=== PATIENT | female | born 1935 | race Caucasian/White ===

== ENCOUNTER 2019-06-21 00:49 | Inpatient (IN) | payer MEDICARE, OTHER, SELFPAY ==
[2019-06-21] VITALS (16 sets, daily range): BP systolic 82–133; BP diastolic 52–82; PULSE 77–108; RESP 14–95; TEMP 35.8–36.6; O2SAT 18–99; BMI 28.3
--- NOTE | 2019-06-21 | ECHO_ITS ---
Patient Info Name: Anastasia Jay Age: 84 years : 1935 Gender: Female Ht: 67 in Wt: 170 lbs BSA: 1.92 m2 HR: 94 bpm BP: 109 / 72 mmHg Technical Quality: Fair Exam Date: 06/21/2019 10:06 AM Exam Location: [facility] Patient Status: Inpatient Admit Date: 06/21/2019 Staff Ordering Physician: Yvan Lombardi MD Air Intercept Controller Supervisor: Amita Chawla RDCS Attending Provider: Malina Herr DO Referring Physician: Maria C AGUDELO; Exam Type: CA echo dop color flow w con Study Info Complete two-dimensional, color flow and Doppler transthoracic echocardiogram is performed with contrast to opacify the left ventrical and to improve the deliniation of the left ventrical endocarial boarders. Contrast/Agitated Saline Contrast/Ag. Saline: Definity Amount: 3.00 ml Summary 1. Borderline LV enlargement, mild LVH; variable LV contractility due to atrial fibrillation, moderate LV systolic dysfunction with segmental wall motion abnormality-severely hypokinetic to akinetic anteroseptal wall, apex and inferoseptum. LVEF about 40%; diastolic dysfunction is present. Mild biatrial enlargement. Mitral annular calcification, mild MR. Mild aortic valve calcification, mild stenosis, LUCIAN 1.9 cm2. Moderate tricuspid regurgitation, moderate pulmonary hypertension, RVSP 52 mmHg. Left Ventricle Left ventricular chamber dimension is normal. Left ventricular systolic function is moderately reduced, estimated at 35-40%. There is mildly increased left ventricular wall thickness. Left ventricular septal wall motion is normal. The left ventricular diastolic function is abnormal. Right Ventricle Right ventricular chamber dimension is mildly enlarged. Right ventricular systolic function is reduced. Left Atria Left atrial chamber dimension is mildly enlarged. Right Atria Right atrial chamber dimension is mildly enlarged. Aortic Valve There is mild aortic valve stenosis with a peak velocity of 87.85 cm/s, mean gradient of 2 mmHg, and aortic valve area of 2.85 cm2. There is no aortic valve regurgitation. There is mild aortic valve calcification. Pulmonic Valve The pulmonic valve is normal. There is trace pulmonic regurgitation. Mitral Valve The mitral valve has calcified annulus. There is no mitral valve stenosis. There is mild mitral valve regurgitation. Tricuspid Valve The tricuspid valve leaflets are normal. There is moderate tricuspid valve regurgitation. Moderate pulmonary hypertension, estimated pulmonary arterial systolic pressure is 52 mmHg. Pericardium/Pleural The pericardium appears epicardial fat pad. There is trivial pericardial effusion. Aorta The aortic root size at the sinus of Valsalva is normal. The prox ascending aorta size is normal. Left Ventricular Outflow Tract Name Value Normal LVOT 2D LVOT Diameter 2.29 cm LVOT Doppler LVOT Peak Gradient 0 mmHg LVOT Mean Gradient 0 mmHg LVOT VTI 8.95 cm LVOT VTI/AV VTI Ratio 0.69 LVOT Stroke Volum
--- NOTE | ~2019-06-21 | XR_ITS ---
XR chest port-a-cath/central DATE: 06/21/2019 03:42 INDICATION: Central line placement TECHNIQUE: Portable AP chest on 06/21/2019 at 0342 hours COMPARISON: None FINDINGS: Right internal jugular central venous catheter tip overlies the caudal aspect of the superi or vena cava. No evidence of pneumothorax. The right lung base and right costophrenic angle are excluded. Cardiomegaly. No pulmonary consolidation is evident. IMPRESSION: Right internal jugular central venous catheter in lower superior vena cava; no evidence o f pneumothorax Cardiomegaly Reviewed, dictated and finalized at [facility]. Reviewed, dictated and finalized at [facility]. IMPRESSION: Right internal jugular central venous catheter in lower superior ve na cava; no evidence of pneumothorax Cardiomegaly
--- NOTE | ~2019-06-21 | XR_ITS ---
XR ERCP DATE: 06/22/2019 08:13 INDICATION: Choledocholithiasis TECHNIQUE: 2 spot C-arm images of the right upper quadrant 120.5 seconds fluoroscopy time [id number] [id number] COMPARISON: 06/21/2019 CT abdomen pelvis FINDINGS: An endoscope is noted overlying the stomach and duodenum. At least 2 filling defects of the distal common bile duct are suggested. There is common bile duct dilatation. The pancreatic duct is opacified and appears unremarkable. IMPRESSION: Choledocholithiasis Reviewed, dictated and finalized at [facility]. Reviewed, dictated and finalized at [facility]. IMPRESSION: Choledocholithiasis
--- NOTE | ~2019-06-21 | CT_ITS ---
EXAMINATION: CT abdomen pelvis w con DATE: 06/21/2019 02:40 INDICATION: Generalized abdominal pain TECHNIQUE: Computed tomography (CT) of the abdomen and pelvis was performed with 100 cc Omnipaque 350 intravenous contrast. Automated exposure control and iterative reconstruction technique were employe d. Exam dose: 800.77 mGy-cm total exam DLP. COMPARISON: None. FINDINGS: There is mild atelectasis and/or scarring in the lower lung zones. Cardiomegaly. No pericar dial or pleural effusion. Possible 9 mm hyperdense stone in the distal common bile duct. No intrahepatic bile duct dilatation i s evident however. Recommend correlation with serum bilirubin and possible MRCP or ERCP as clinically appropriate. No hepatic or pancreatic splenic space-occupying mass lesion is evident. Approximately 2 cm right renal probable cyst. Suggestion of an approximately 1 cm left renal cyst. Ad ditional cysts or renal masses are not excluded on this limited noncontrast examination. No urinary tract calculus or hydroureteronephrosis. There is prominent abdominal aortic and proximal bilateral renal artery calcification as well as calc ifications at the origins of the celiac and particularly superior mesenteric and inferior mesenteric arteries. There are iliac and femoral artery calcifications. No abdominal aortic aneurysm. No intrape ritoneal or retroperitoneal or pelvic mass lesion or adenopathy or ascites. Normal appendix. There are numerous diverticula of the sigmoid and descending colon; no CT evidence of diverticulitis. The urinary bladder is unremarkable. Status post hysterectomy. 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 No suspicious osteolytic or osteoblastic lesions. IMPRESSION: Probable distal common bile duct stone; recommend correlation with serum bilirubin. Cons ider MRCP or ERCP as clinically appropriate Probable renal cysts; limited noncontrast examination Atherosclerosis Diverticulosis of the left colon; no CT evidence of diverticulitis Normal appendix Reviewed, dictated and finalized at [facility]. Reviewed, dictated and finalized at [facility]. IMPRESSION: Probable distal common bile duct stone; recommend correlation with serum bilirubin. Consider MRCP or ERCP as clinically appropriate Probable renal cysts; limited noncontrast examination Atherosclerosis Diverticulosis of the left colon; no CT evidence of diverticulitis Normal appendix
--- NOTE | 2019-06-21 00:55 | ED.ABDPAIN ---
HPI - Abdominal Pain General Chief Complaint: Abdominal Pain Stated Complaint: abd pain Time Seen by Provider: 06/21/19 00:49 Source: patient and RN notes reviewed Mode of arrival: EMS Limitations: no limitations History of Present Illness HPI narrative: Pt is an 84 y/o female who presents to the ED, via EMS from home, with c/o lower abdominal pain that began a week ago. Pt states that she has had a bowel obstruction for the past week. Pt also reports nausea, dry heaving, poor appetite, and mild constipation, but denies a fever and vomiting. MD elicited complaint: abdominal pain Onset (ago): week(s) (1) Pain Consistency: other (still present) Location: other (lower abdomen) Associated symptoms: nausea, constipation (mild) and other (dry heaving, poor appetite) Review of Systems Review of Systems: Narrative: CONSTITUTIONAL: Reports poor appetite. Denies fever. GASTROINTESTINAL: Reports lower abdominal pain, nausea, dry heaving, and mild constipation. Denies vomiting. All systems reviewed & are unremarkable except as noted in HPI and below PMFSH Past Medical History Medical History (Updated 06/21/19 @ 02:56 by Angela Brewer MD) Patient denies significant medical history Surgical History Surgical History (Updated 06/21/19 @ 03:37 by Shirley Parker) History of hysterectomy Hx of cholecystectomy Social History Social History (Updated 06/21/19 @ 02:16 by Shirley Parker) Smoking status: Unknown if ever smoked Exam Narrative: Exam Narrative: CONSTITUTIONAL: Awake, alert, conversant HEAD: Normocephalic, atraumatic. EYES: EOMI, conjunctiva clear ENT: Nares patent. Mucous membranes dry NECK: Full range of motion RESPIRATORY: No respiratory distress, speaking in full sentences, no tachypnea HEART: Regular rate ABDOMEN: Mild distention, mild diffuse tenderness throughout, no guarding, no rebound. EXTREMITIES: Normal range of motion. No edema SKIN: Warm, dry, no rash. NEUROLOGIC: No focal deficits. Alert and oriented x3. Procedures Central Line Placement Right IJ: Central Line Date: 06/21/19 Central Line Time: 03:30 Time Out Performed: Yes Patient Placed on Monitor/Pulse Ox: Yes Max. Sterile Barrier Technique: Caps, large sterile sheet and hand hygiene Central Line Prep: 2% chlorhexidine scrub and sterile drapes applied Technique: US-Guided Local Anesthetic: lidocaine 1% Amount of anesthesia used (mL): 3 Ultrasound Used for Placement: Yes Central Line Lumen Inserted: triple Post Procedure: sutured in place, good blood return, all ports aspirated, flushed, capped and sterile dressing applied Post Procedure X-Ray: tip of catheter in good position and no pneumothorax seen Patient Tolerated Procedure: well and no complications Complications: none Course Course Emergency Course: The patient presents to the emergency department for evaluation of abdominal pain, vomiting. At the time of initial assessment, patient is hypothermic, tachycardic, hypotensive. IV access obtained and labs are drawn including blood cultures and lactic acid. Patient was given a 30 mL/kg fluid bolus because I was initially very concerned for severe sepsis and septic shock. Patient did have some diffuse tenderness of her abdomen with mild distention, no rigidity or guarding. She is otherwise quite well-appearing, awake alert and conversant. Laboratory results are concerning for cholangitis. She has a leukocytosis, a lactic acidosis, transaminitis, elevation in alkaline phosphatase. No elevation of lipase. She has a mild elevation in troponin which is likely secondary to the sepsis. No UTI. CT scan shows choledocholithiasis with a stone in the common bile duct. Patient was given IV antibiotics. GI was consulted to evaluate the patient and they will see her this morning. Patient will be admitted to the ICU for hypotension, she was minimally fluid responsive, t
--- NOTE | 2019-06-21 01:01 | ECG_ITS ---
Measurements Intervals [place] Rate: 86 P: SC: 0 QRS: 20 QRSD: 99 T: 194 QT: 409 QTc: 492 Interpretive Statements ATRIAL FIBRILLATION DELAYED PRECORDIAL R/S TRANSITION BORDERLINE T WAVE ABNORMALITY- DIFFUSE LEADS BASELINE WANDER- I, III, V5 ABNORMAL ECG Electronically Signed On 06-21-2019 8:03:48 CDT by Jonathon Thurston D.O.
[2019-06-21 01:32] LABS: Basophils Percent Auto 0.3 % (0.2-1.2); Eosinophils Absolute Auto 0.1 K/mm3 (0-0.3); Eosinophils Percent Auto 0.5 % (0-4.4); Hematocrit 34.8 % (37.0-47.0); Hemoglobin 11.2 g/dL (12.0-15.0); Immature Granulocyte Absolute 0.03 K/mm3 (0.00-0.031); Immature Granulocyte Percent A 0.3 % (0-0.5); Lymphocytes Absolute Auto 0.49 K/mm3 (0.9-3.2); Lymphocytes Percent Auto 4.2 % (18.3-44.2); Mean Corpuscular HGB Conc 32.2 g/dl (32-36); Mean Corpuscular Volume 93.3 fl (80-100); Monocytes Absolute Auto 0.1 K/mm3 (0.1-0.6); Monocytes Percent Auto 0.9 % (2.6-8.5); Neutrophils Absolute Auto 10.9 K/mm3 (1.3-6.7); Neutrophils Percent Auto 93.8 % (45.5-73.1); Platelet Count Result 189 k/mm3 (150-375); Red Blood Count 3.73 M/mm3 (4.2-5.4); Red Cell Distribution Width 14.2 % (11.5-14.5); White Blood Count 11.6 K/mm3 (4.5-10.0)
[2019-06-21] MEDS: ONDANSETRON INJ 4 MG/2 ML VIAL IV PUSH (01:38)
[2019-06-21] MEDS: SODIUM CHLORIDE 0.9% IV 1,000 ML 999 ML IV CONT (01:39)
--- NOTE | 2019-06-21 01:41 | PC.NURSE ---
While using BSC, pt closed eyes and dozed off for a few seconds. Not able to get a automatic b/p so manual was taken and recorded.
[2019-06-21 02:00] LABS: Alanine Aminotransferase 311 U/L (4-35); Albumin Level 3.3 g/dL (3.5-5.1); Alkaline Phosphatase 216 U/L (38-126); Aspartate Amino Transferase 205 U/L (14-36); Bilirubin,Total 2.2 mg/dL (0.2-1.3); Blood Urea Nitrogen 28 mg/dL (7-17); Calcium 8.6 mg/dL (8.4-10.2); Carbon Dioxide 24 mmol/L (22-30); Chloride 103 mmol/L (98-107); Estimated Glomerular Filt Rate 47; Glucose 119 mg/dL (65-105); Lipase 18 U/L (23-300); Potassium 4.3 mmol/L (3.4-5.0); Sodium 136 mmol/L (137-145)
[2019-06-21 02:14] LABS: Lactic Acid Reflex 2.4 mmol/L (0.7-2.1)
[2019-06-21 02:14] LABS: Add Urine Microscopic? YES; Appearance Urine Cloudy (Clear); Bacteria Urine Trace /hpf; Bilirubin Urine Negative (Negative); Blood Urine Negative (Negative); Color Urine Yellow (Yellow); Glucose Urine UA Negative (Negative); Ketones Urine Negative (Negative); Leukocyte Esterase Ur 1+ LEU/UL (Negative); Nitrate Urine Negative (Negative); Protein Urine 1+ mg/dL (Negative); RBC Urine 0-2 /hpf (0-2); Squamous Epithelial Cell Urine Few /hpf (Few)
[2019-06-21 02:37] LABS: INR 1.3; Prothrombin Time 15.9 Seconds (11.1-14.7)
[2019-06-21 02:38] LABS: Partial Thromboplastin Time 28.3 SECONDS (22.3-36.8)
[2019-06-21 02:46] LABS: Alveolar/Arterial O2 Gradient 35.3 mmHg; Base Excess ABG -5.4 mEq/l (+/-2.0); Carboxyhemoglobin 0.8 % THb (0-2.0); Fractional Inspired Oxygen 21 %; HCO3 ABG 19.1 mEq/l (22.0-26.0); Methemoglobin ABG 0.3 %THb (0-1.5); Oxygen Content ABG 13.7 %vol (16.0-22.0); Oxygen Saturation ABG 94.7 % (95.0-100.0); Oxyhemoglobin 91.4 % THb (90.0-100.0); PCO2 ABG 33.6 mmHg (35.0-45.0); PO2 ABG 74.2 mmHg (80.0-100.0); PO2 FiO2 Ratio Arterial Blood 3.53 %; Reduced Hemoglobin 7.5 %THb (0-5.0); Total Hemoglobin 10.6 g/dL (12.0-18.0); pH ABG 7.372 (7.350-7.450)
[2019-06-21 02:47] LABS: Troponin I 0.081 ng/mL (0.000-0.034)
[2019-06-21 02:47] LABS: Device ROOM AIR; Modified Allen's Test Pass; Site Drawn LEFT RADIAL
--- NOTE | 2019-06-21 03:42 | PC.NURSE ---
Central line placed by Md Harper. pt tolerated well. Consent signed by daughter.
[2019-06-21] MEDS: SODIUM CHLORIDE 0.9% IV 500 ML 999 ML IV CONT (03:45)
[2019-06-21] MEDS: NOREPINEPHRINE 8 MG/D5W 250 ML 8 MG/250 ML BAG 9.4 MG IV CONT (04:03)
[2019-06-21 04:59] LABS: Reflex Lactic Acid Yes or No Add Lactic
[2019-06-21 05:39] LABS: Lactic Acid 0.9 mmol/L (0.7-2.1)
--- NOTE | 2019-06-21 06:32 | PC.NURSE ---
Called ICU at 0631, spoke with Doris and she stated the nurse would call me back.
--- NOTE | 2019-06-21 06:59 | PC.NURSE ---
Med list updated and a copy of given meds sent with chart
--- NOTE | 2019-06-21 08:24 | ADMGEN ---
This patient, Anastasia Jay, was admitted to Intensive Care Unit-9. Patient/family oriented to hospital policies and general routines including ID bracelet, bed and alarms, visiting hours, pain management, procedures, bathroom and other care routines, personal items, smoking policy, room service/diet, and visiting hours. Valuables list has been completed. Information on how to activate the Rapid Response Team has been discussed. Patient/Family are encouraged to report perceived risks to care and to ask questions if they do not understand what they are told or what they should do.
[2019-06-21] MEDS: LACTATED RINGERS 1,000 ML 125 ML IV CONT ×2 (08:35→17:04)
--- NOTE | 2019-06-21 08:38 | WPDGICN ---
Assessment and Plan Assessment and plan (1) Acute cholangitis: Code(s): K83.09 - Other cholangitis Status: Acute Assessment and Plan: Common bile duct gallstones suggested by CT scan. Given her elevated white count suspect cholangitis. Agree with broad-spectrum antibiotic coverage. Low blood pressure may be related to infection. But she is also on significant antihypertensive agents. These are currently on hold. We will plan to proceed with either MRCP or ERCP over the next few days after blood pressure has improved. We will follow with you. (2) Hx of cholecystectomy: Code(s): Z90.49 - Acquired absence of other specified parts of digestive tract Status: Acute Assessment and Plan: Patient has history of cholecystectomy several years ago. There is concern she may now have a residual common bile duct gallstone. We will follow with you in anticipate ERCP over the next few days. GI Consult Note Consult date/time: 06/21/19 08:38 HPI: Anastasia Jay is a 84 year old female seen in evaluation at the request of the emergency room. Patient reports abdominal pain intermittently over the last 1 week. Pain appears to be centered in the right side of her abdomen perhaps right upper quadrant. She states that occasionally he has been in other locations in her abdomen. Because of more intense pain last evening she went to the emergency room. She was found to be hypotensive with elevated white count. CT scan of the abdomen suggested a common bile duct gallstone. Patient reports having had a cholecystectomy at [facility] 2 years ago. Patient denies any jaundice. She denies any darkening to her urine. Review of Systems Review of Systems: All systems reviewed & are unremarkable except as noted in HPI and below PMFSH Past Medical History Medical History Patient denies significant medical history Surgical History Surgical History History of hysterectomy Hx of cholecystectomy Family History Family History Mother Hypertension Sibling Lung cancer Social History Social History Smoking packs per day: 2 Smoking cigarettes per day: 40.0 Years smoked: 67 Smoking pack-years: 134.00 Smoking status: Former smoker Tobacco type: cigarettes Second hand tobacco smoke exposure: Yes Alcohol intake: never Substance use: never Substance use type: does not use Gender identity (if verbalized by the patient): Female Spiritual care concerns: No Agree to blood products: Yes Meds Home Medications and Allergies Home Medications Medication Instructions Recorded Confirmed Type amitriptyline 50 mg PO HS 06/21/19 06/21/19 History aspirin [Adult Aspirin Regimen] 81 mg PO DAILY 06/21/19 06/21/19 History celecoxib 200 mg PO BID 06/21/19 06/21/19 History cetirizine [Zyrtec] 10 mg PO DAILY 06/21/19 06/21/19 History glimepiride [Amaryl] 2 mg PO DAILY 06/21/19 06/21/19 History metoprolol succinate [Toprol XL] 100 mg PO DAILY 06/21/19 06/21/19 History nifedipine 30 mg PO DAILY 06/21/19 06/21/19 History omeprazole 20 mg PO BID 06/21/19 06/21/19 History simvastatin 20 mg PO DAILY 06/21/19 06/21/19 History Allergies Allergy/AdvReac Type Severity Reaction Status Date / Time No Known Allergies Allergy Verified 06/21/19 06:33 Vital Signs Vital Signs - 24 hr 06/21/19 00:51 06/21/19 01:36 06/21/19 02:56 Temperature 36.3 C L Pulse Rate 108 H 94 Respiratory Rate 29 H 19 Blood Pressure 84/57 L 82/56 L 98/58 L Pulse Oximetry 97 93 06/21/19 04:00 06/21/19 05:13 06/21/19 06:00 Temperature Pulse Rate 83 95 93 Respiratory Rate 19 16 18 Blood Pressure 97/61 L 111/82 133/78 Pulse Oximetry 94 97 94 06/21/19 07:29 Temperature Pulse Rate 94 Respiratory Rate
[2019-06-21 08:58] LABS: Troponin I 0.076 ng/mL (0.000-0.034)
--- NOTE | 2019-06-21 09:12 | PM.IMHP ---
H&P: HPI History of Present Illness Chief complaint: Cholangitis Narrative: Anastasia Jay is a 84 year old female with prior history of cholecystectomy about 3 years ago presented the emergency department with a 2 week history of constant abdominal discomfort aching upper abdomen left and right and mid. Associated intermittent nausea and vomiting. Dry heaves. No fevers or chills. No bleeding. No change in stools. Not certain whether it was similar to her gallstone pain. Pain did radiate to the mid back. The pain became severe and intolerable on the evening of June 19. She called her daughter and ask to be transported to the emergency department. She arrived there in the concert or lecture hall manager hours of June 20. There she was found to be hypotensive and febrile. A central line was inserted in the right internal jugular vein and she was given fluids and pressors. She was started on broad-spectrum antibiotics. Review of Systems Review of Systems: All systems reviewed & are unremarkable except as noted in HPI and below PMFSH Past Medical History Medical History (Updated 06/21/19 @ 09:30 by Yvan Lombardi MD) COPD (chronic obstructive pulmonary disease) Hyperlipidemia Hypertension, essential Surgical History Surgical History (Updated 06/21/19 @ 09:18 by Yvan Lombardi MD) History of hysterectomy Hx of cholecystectomy About 2017 in [place], [place] Family History Family History Mother Hypertension Sibling Lung cancer Social History Social History (Updated 06/21/19 @ 09:19 by Yvan Lombardi MD) Smoking packs per day: 2 Smoking cigarettes per day: 40.0 Years smoked: 67 Smoking pack-years: 134.00 Smoking status: Former smoker Tobacco type: cigarettes Second hand tobacco smoke exposure: Yes Alcohol intake: never Substance use: never Substance use type: does not use Occupation/Education: retired Gender identity (if verbalized by the patient): Female Spiritual care concerns: No Agree to blood products: Yes Meds Home Medications and Allergies Home Medications Medication Instructions Recorded Confirmed Type amitriptyline 50 mg PO HS 06/21/19 06/21/19 History aspirin [Adult Aspirin Regimen] 81 mg PO DAILY 06/21/19 06/21/19 History celecoxib 200 mg PO BID 06/21/19 06/21/19 History cetirizine [Zyrtec] 10 mg PO DAILY 06/21/19 06/21/19 History glimepiride [Amaryl] 2 mg PO DAILY 06/21/19 06/21/19 History metoprolol succinate [Toprol XL] 100 mg PO DAILY 06/21/19 06/21/19 History nifedipine 30 mg PO DAILY 06/21/19 06/21/19 History omeprazole 20 mg PO BID 06/21/19 06/21/19 History simvastatin 20 mg PO DAILY 06/21/19 06/21/19 History Allergies Allergy/AdvReac Type Severity Reaction Status Date / Time No Known Allergies Allergy Verified 06/21/19 06:33 Vital Signs Vital Signs - 24 hr 06/21/19 00:51 06/21/19 01:36 06/21/19 02:56 Temperature 97.4 F L Pulse Rate 108 H 94 Respiratory Rate 29 H 19 Blood Pressure 84/57 L 82/56 L 98/58 L Pulse Oximetry 97 93 06/21/19 04:00 06/21/19 05:13 06/21/19 06:00 Temperature Pulse Rate 83 95 93 Respiratory Rate 19 16 18 Blood Pressure 97/61 L 111/82 133/78 Pulse Oximetry 94 97 94 06/21/19 07:29 Temperature Pulse Rate 94 Respiratory Rate 14 Blood Pressure 109/72 Pulse Oximetry H&P: Results Labs Labs: Short CBC 06/21/19 Range/Units 01:10 WBC 11.6 H (4.5-10.0) K/mm3 Hgb 11.2 L (12.0-15.0) g/dL Hct 34.8 L (37.0-47.0) % Plt Count 189 (150-375) k/mm3 BMP 06/21/19 01:10 Sodium 136 L Potassium 4.3 Chloride 103 Carbon Dioxide 24 BUN 28 H Creatinine 1.10 H Glucose 119 H Calcium 8.6 Cardiac Enzymes 06/21/19 06/21/19 Range/Units 01:10 08:01 Troponin I 0.081 H* 0.076 H* (0.000-0.034) ng/mL Liver Function 06/21/19 Range/Units 01:10 Total Bilirubin 2.2 H (0.2-1.3) mg/dL AST 205 H (14-36) U/L A
--- NOTE | 2019-06-21 11:19 | WPDCNINT ---
Assessment and Plan Assessment and plan (1) Septic shock: Code(s): A41.9 - Sepsis, unspecified organism; R65.21 - Severe sepsis with septic shock Status: Acute Assessment and Plan: patient presented with her abdominal pain, found to have acute cholangitis, patient given IV fluid despite which she remained hypotensive, central line inserted and started on Levophed. Will maintain mean arterial pressures > 65 mmHg - started on Zosyn and and received 1 dose of vancomycin - cultures have been obtained and pending - lactic acid was 2.4, repeat lactic acid 0.9 (2) Acute cholangitis: Code(s): K83.09 - Other cholangitis Status: Acute Assessment and Plan: CT abdomen showed choledocholithiasis. elevated LFTs and bilirubin - Possible acute cholangitis - - GI was consulted, possible ERCP with more stable (3) Elevated troponin I level: Code(s): R79.89 - Other specified abnormal findings of blood chemistry Status: Acute Assessment and Plan: mildly elevated troponin level, plateaued, likely secondary to type 2 infarct which could be related to septic shock and ischemic demand will continue to monitor. Patient is asymptomatic (4) Hypertension, essential: Code(s): I10 - Essential (primary) hypertension Status: Acute Assessment and Plan: patient with history of essential hypertension currently will hold all anti hypertensives as patient on Levophed (5) Hx of cholecystectomy: Code(s): Z90.49 - Acquired absence of other specified parts of digestive tract Status: Acute Assessment and Plan: patient stated she had a cholecystectomy [facility] in the last 2-3 years, will obtain records (6) Atrial fibrillation with RVR: Code(s): I48.91 - Unspecified atrial fibrillation Status: Acute Assessment and Plan: patient went to AFib RVR, no known history, will continue to monitor Additional Plan discussed with patient at length and updated her with her condition and plan of care. Code status: Full code critical care time spent: 43 minutes Due to a high probability of clinically significant, life threatening deterioration, the patient required my highest level of preparedness to intervene emergently and I personally spent this critical care time directly and personally managing the patient. This critical care time included obtaining a history; examining the patient; pulse oximetry; ordering and review of studies; arranging urgent treatment with development of a management plan; evaluation of patient's response to treatment; frequent reassessment; and discussions with other providers. It was exclusive of separately billable procedures and treating other patients and teaching time. Please see Assessment and Plan section and the rest of the note for further information on patient assessment and treatment Design Specialist Consult Note Consult date: 06/21/19 Time Seen: 08:11 Reason for consult: Cholangitis, septic shock, choledocholithiasis HPI: Anastasia Jay is a 84 year old female with PMH of COPD, Hyperlipidemia, essential HTN, history of cholecystectomy 2-3 back at [facility] presented with abdominal pain x1 week. Abdominal pain right and left upper quadrant. Associated intermittent nausea and vomiting. Dry heaves. No fevers or chills. No bleeding. No change in stools. In the ER was found to be hypotensive and hypothermic. Pt was given IVF 30 ml/kg, despite which the blood pressures were low, CVC placed and started on levophed. CT abd/pelvis, showed Probable distal common bile duct stone; recommend correlation with serum bilirubin. Consider MRCP or ERCP as clinically appropriate. Probable renal cysts; limited noncontrast examination.Atherosclerosis Diverticulosis of the left colon; no CT evidence of diverticulitis.Normal appendix. Pt started on abx and transferred to ICU Pt seen and examined in the ICU. Is awake, xi
[2019-06-21 11:26] LABS: Alanine Aminotransferase 221 U/L (4-35); Albumin Level 2.9 g/dL (3.5-5.1); Alkaline Phosphatase 178 U/L (38-126); Aspartate Amino Transferase 103 U/L (14-36); Bilirubin,Total 1.5 mg/dL (0.2-1.3); Blood Urea Nitrogen 26 mg/dL (7-17); Calcium 7.8 mg/dL (8.4-10.2); Carbon Dioxide 22 mmol/L (22-30); Chloride 105 mmol/L (98-107); Estimated CRCL calculation 35 ml/min; Estimated Glomerular Filt Rate 43; Glucose 140 mg/dL (65-105); Potassium 4.2 mmol/L (3.4-5.0); Sodium 135 mmol/L (137-145)
[2019-06-21 11:34] LABS: Basophils Percent Auto 0.3 % (0.2-1.2); Eosinophils Percent Auto 0.3 % (0-4.4); Hematocrit 30.7 % (37.0-47.0); Hemoglobin 9.8 g/dL (12.0-15.0); Immature Granulocyte Absolute 0.05 K/mm3 (0.00-0.031); Immature Granulocyte Percent A 0.5 % (0-0.5); Lymphocytes Absolute Auto 1.09 K/mm3 (0.9-3.2); Lymphocytes Percent Auto 11.4 % (18.3-44.2); Mean Corpuscular HGB Conc 31.9 g/dl (32-36); Mean Corpuscular Hemoglobin 29.9 pg (26-34); Mean Corpuscular Volume 93.6 fl (80-100); Mean Platelet Volume 12.4 fl (7.4-10.4); Monocytes Absolute Auto 0.6 K/mm3 (0.1-0.6); Monocytes Percent Auto 6.2 % (2.6-8.5); Neutrophils Absolute Auto 7.8 K/mm3 (1.3-6.7); Neutrophils Percent Auto 81.3 % (45.5-73.1); Platelet Count Result 155 k/mm3 (150-375); Red Blood Count 3.28 M/mm3 (4.2-5.4); Red Cell Distribution Width 14.4 % (11.5-14.5); White Blood Count 9.6 K/mm3 (4.5-10.0)
[2019-06-21 11:35] LABS: Immature Reticulocyte Fraction 12.3 % (3.0-15.9); Reticulocyte Hemoglobin Conten 30.5 pg (28.2-35.7); Reticulocyte Percent 2.93 % (0.7-4.3)
[2019-06-21 11:51] LABS: Iron 26 ug/dL (37-170)
[2019-06-21 12:01] LABS: Percent Iron Saturation 11 % (20-50)
[2019-06-21 12:23] LABS: Thyroid Stimulating Hormone Reflex 0.334 uIU/mL (0.465-4.68)
[2019-06-21 12:32] LABS: Folic Acid 11.7 ng/mL (2.76->20)
[2019-06-21 13:29] LABS: Free T4 Free Thyroxine Reflex 1.58 ng/dL (0.78-2.19)
[2019-06-21 14:12] LABS: Total Triiodothyronine (T3) 0.52 NG/ML (0.97-1.69)
--- NOTE | 2019-06-21 16:37 | WPDANESEPP ---
Anes - Eval Pre Procedure Date/Time: 06/21/19 16:37 Preop Diagnosis: common bile duct stones Pre Op Diagnosis: Cholangitis Patient Data Age: 84 Gender: F Height: 5 ft 7 in Weight: 82 kg Last Vital Signs Temp 97.8 F 06/21/19 16:00 Pulse 88 06/21/19 16:00 Resp 16 06/21/19 16:00 BP 117/52 L 06/21/19 16:00 Pulse Ox 98 06/21/19 14:00 Allergies Allergy/AdvReac Type Severity Reaction Status Date / Time No Known Allergies Allergy Verified 06/21/19 06:33 Home Medications Medication Instructions Recorded Confirmed Type amitriptyline 50 mg PO HS 06/21/19 06/21/19 History aspirin [Adult Aspirin Regimen] 81 mg PO DAILY 06/21/19 06/21/19 History celecoxib 200 mg PO BID 06/21/19 06/21/19 History cetirizine [Zyrtec] 10 mg PO DAILY 06/21/19 06/21/19 History glimepiride [Amaryl] 2 mg PO DAILY 06/21/19 06/21/19 History metoprolol succinate [Toprol XL] 100 mg PO DAILY 06/21/19 06/21/19 History nifedipine 30 mg PO DAILY 06/21/19 06/21/19 History omeprazole 20 mg PO BID 06/21/19 06/21/19 History simvastatin 20 mg PO DAILY 06/21/19 06/21/19 History Laboratory Tests 06/21/19 06/21/19 06/21/19 01:10 01:10 01:10 WBC 11.6 K/mm3 H K/mm3 (4.5-10.0) RBC 3.73 M/mm3 L M/mm3 (4.2-5.4) Hgb 11.2 g/dL L g/dL (12.0-15.0) Hct 34.8 % L % (37.0-47.0) MCV 93.3 fl fl (80-100) MCH 30.0 pg pg (26-34) MCHC 32.2 g/dl g/dl (32-36) RDW 14.2 % % (11.5-14.5) Plt Count 189 k/mm3 k/mm3 (150-375) MPV 13.0 fl H fl (7.4-10.4) Immature Gran % (Auto) 0.3 % % (0-0.5) Neut % (Auto) 93.8 % H % (45.5-73.1) Lymph % (Auto) 4.2 % L % (18.3-44.2) [place] % (Auto) 0.9 % L % (2.6-8.5) Eos % (Auto) 0.5 % % (0-4.4) Baso % (Auto) 0.3 % % (0.2-1.2) Lymph # (Auto) 0.49 K/mm3 L K/mm3 (0.9-3.2) [place] # (Auto) 0.1 K/mm3 K/mm3 (0.1-0.6) Eos # (Auto) 0.1 K/mm3 K/mm3 (0-0.3) Baso # (Auto) 0.0 K/mm3 K/mm3 (0.0-0.1) Abs Immat Gran (auto) 0.03 K/mm3 K/mm3 (0.00-0.031) Absolute Neuts (auto) 10.9 K/mm3 H K/mm3 (1.3-6.7) Absolute Nucleated RBC 0.0 K/mm3 K/mm3 (0.0-0.012) Nucleated RBC % 0.0 % % (0.0-0.2) Absolute Retic Percent Retic Immature Retic Fraction Retic Hgb Content PT 15.9 Seconds H Seconds (11.1-14.7) INR 1.3 APTT 28.3 SECONDS SECONDS (22.3-36.8) Puncture Site ABG pH ABG pCO2 ABG pO2 ABG PO2/FiO2 Ratio ABG HCO3 ABG O2 Saturation ABG O2 Content ABG Base Excess A-a Gradient Oxyhemoglobin Carboxyhemoglobin Methemoglobin Reduced Hemoglobin Total Hemoglobin O2 Delivery Device O2 Liters/Min FiO2 Sodium 136 mmol/L L mmol/L (137-145) Potassium 4.3 mmol/L mmol/L (3.4-5.0) Chloride 103 mmol/L mmol/L (98-107) Carbon Dioxide 24 mmol/L mmol/L (22-30) BUN 28 mg/dL H mg/dL (7-17) Creatinine 1.10 mg/dL H mg/dL (0.7-1.0) Estim Creat Clear Calc Not Reportable Estimated GFR 47 L (59 - ) Glucose 119 mg/dL H mg/dL (65-105) Lactic Acid Calcium 8.6 mg/dL mg/dL (8.4-10.2) Iron TIBC % Saturation Total Bilirubin 2.2 mg/dL H mg/dL (0.2-1.3) AST 205 U/L H U/L (14-36) ALT 311 U/L H U/L (4-35) Alkaline Phosphatase 216 U/L H U/L (38-126) Troponin I Total Protein 7.0 g/dL g/dL (6.3-8.2) Albumin 3.3 g/dL L g/dL (3.5-5.1) Lipase 18 U/L L U/L (23-300)
[2019-06-21 17:59] LABS: Glucose Point of Care 66 (65-105)
[2019-06-21 20:28] LABS: Glucose Point of Care 115 (65-105)
[2019-06-21] MEDS: PANTOPRAZOLE 40 MG TABLET PO (20:58)
[2019-06-21 23:17] LABS: Glucose Point of Care 124 (65-105)
[2019-06-22] VITALS (14 sets, daily range): BP systolic 107–139; BP diastolic 67–94; PULSE 85–122; RESP 14–96; TEMP 36.4–36.8; O2SAT 18–100
[2019-06-22] MEDS: LACTATED RINGERS 1,000 ML 125 ML IV CONT (00:57)
[2019-06-22 05:20] LABS: Basophils Percent Auto 0.5 % (0.2-1.2); Eosinophils Absolute Auto 0.3 K/mm3 (0-0.3); Eosinophils Percent Auto 4.2 % (0-4.4); Hematocrit 31.2 % (37.0-47.0); Hemoglobin 9.9 g/dL (12.0-15.0); Immature Granulocyte Absolute 0.03 K/mm3 (0.00-0.031); Immature Granulocyte Percent A 0.4 % (0-0.5); Lymphocytes Absolute Auto 1.31 K/mm3 (0.9-3.2); Mean Corpuscular HGB Conc 31.7 g/dl (32-36); Mean Corpuscular Hemoglobin 29.7 pg (26-34); Mean Corpuscular Volume 93.7 fl (80-100); Mean Platelet Volume 12.5 fl (7.4-10.4); Monocytes Absolute Auto 0.6 K/mm3 (0.1-0.6); Neutrophils Absolute Auto 5.9 K/mm3 (1.3-6.7); Neutrophils Percent Auto 71.9 % (45.5-73.1); Platelet Count Result 139 k/mm3 (150-375); Red Blood Count 3.33 M/mm3 (4.2-5.4); Red Cell Distribution Width 14.6 % (11.5-14.5); White Blood Count 8.2 K/mm3 (4.5-10.0)
[2019-06-22 05:32] LABS: Lactic Acid 1.2 mmol/L (0.7-2.1)
[2019-06-22 06:01] LABS: Alanine Aminotransferase 163 U/L (4-35); Albumin Level 2.8 g/dL (3.5-5.1); Alkaline Phosphatase 181 U/L (38-126); Aspartate Amino Transferase 46 U/L (14-36); Blood Urea Nitrogen 19 mg/dL (7-17); Calcium 8.1 mg/dL (8.4-10.2); Carbon Dioxide 24 mmol/L (22-30); Chloride 107 mmol/L (98-107); Estimated CRCL calculation 33 ml/min; Estimated Glomerular Filt Rate 47; Glucose 118 mg/dL (65-105); Magnesium 1.8 mg/dL (1.6-2.3); Phosphorus 3.7 mg/dL (2.5-4.5); Potassium 4.1 mmol/L (3.4-5.0); Sodium 138 mmol/L (137-145)
[2019-06-22 06:14] LABS: CRP 21.6 mg/dL (<1.0)
[2019-06-22] MEDS: LACTATED RINGERS 1,000 ML 150 ML IV CONT (07:09)
--- NOTE | 2019-06-22 07:18 | WPDANESEFPP ---
Anes - Eval Final PreProcedure Day of Procedure 06/22/19 07:18 Patient weight: overweight Heart: tachycardia Lungs: decreased breath sounds Neurological: alert and oriented Last oral intake: >/= 8 hours ASA classification: IV Emergent: yes Anesthetic plan: proceed Anesthesia type and monitoring: general ETT and standard monitoring Informed Consent: The patient's anesthetic plan and its attendant risks and benefits were discussed with the patient/family/POA. Questions were solicited and answers provided to the satisfaction of the patient/family/POA.
--- NOTE | 2019-06-22 08:39 | SUR.PHASEII ---
Patient to be recovered by [employer]IPE [employer]KER in ICU per Dr Hanna. Patient transported to Recovery room [address] Hanna with patient until [employer] at bedside.
--- NOTE | 2019-06-22 09:41 | P.PNIM_ITS ---
Progress Note: A&P Assessment and Plan (1) Acute cholangitis: Code(s): K83.09 - Other cholangitis Status: Acute Assessment and Plan: * Vanc and Zosyn day 1 * CT suggests CBD stones * 4/5 successful ERCP with extraction upon large common bile duct stone and resolution of symptoms * 4/5 start with clear liquids and advance diet as tolerated (2) Severe sepsis: Code(s): A41.9 - Sepsis, unspecified organism; R65.20 - Severe sepsis without septic shock Status: Acute Assessment and Plan: * 4/5 off Levophed * IVF * Vanc/Zosyn day 2 (3) Hx of cholecystectomy: Code(s): Z90.49 - Acquired absence of other specified parts of digestive tract Status: Acute Assessment and Plan: * About 2016 in [place], [place] * Records requested (4) COPD (chronic obstructive pulmonary disease): Code(s): J44.9 - Chronic obstructive pulmonary disease, unspecified Status: Acute Assessment and Plan: * Uses PRN inhaler at home (5) Atrial fibrillation with RVR: Code(s): I48.91 - Unspecified atrial fibrillation Status: Acute Assessment and Plan: * Denied prior hx of afib * Improved with treatment of hypotension * Echocardiogram with LVEF 35-40%, mild MR, mild * 4/5 resume metoprolol * 4/5 resume aspirin 81 mg daily * Consider initiating anticoagulation 48 hours postprocedure if no bleeding (6) Hypertension, essential: Code(s): I10 - Essential (primary) hypertension Status: Acute Assessment and Plan: * Resolved (7) Elevated troponin I level: Code(s): R79.89 - Other specified abnormal findings of blood chemistry Status: Acute Assessment and Plan: * Likely due to AFIB RVR, Sepsis with shock * Flat response * No ACS Subjective Date/time seen: 06/22/19 09:41 Interval history: 84-year-old female admitted 06/20 with acute cholangitis and common bowel duct stone. 4/5 uneventful ERCP with extraction of 1 large common bowel duct stone. Patient feels much better postprocedure. Denied abdominal pain nausea vomiting. Denied diarrhea. Denied dysuria hematuria. Denied chest pain or shortness of breath. Denied weakness. Denied abnormal bleeding Review of Systems Review of Systems: All systems reviewed & are unremarkable except as noted in HPI and below Exam Narrative: Exam Narrative: HEENT: EOMI, PERRL, pharyngeal mucosa pink and intact NECK: No JVD CHEST: Clear to auscultation. Normal effort. HEART: NL S1/S2, regular, no murmur ABDOMEN: BS+, soft, nontender, no mass, no bruits EXTREMITIES: No cyanosis, edema, or clubbing NEUROLOGIC: CN intact and symmetric to inspection. MUSCULOSKELETAL: Tone and strength symmetric. PSYCH: Alert. Oriented to person, place, and time. Objective Data Vital Signs Vital Signs: Vital Signs - 24 hr 06/21/19 10:00 06/21/19 12:00 06/21/19 14:00 Temperature Pulse Rate 86 88 82 Respiratory Rate 18 18 18 Blood Pressure 126/75 94/66 L 102/67 Pulse Oximetry 99 98 98 06/21/19 16:00 06/21/19 18:00 06/21/19 20:00 Temperature 97.8 F 97.8 F Pulse Rate 88 88 81 Respiratory Rate 16 95 H 22 H Blood Pressure 117/52 L 114/72 108/54 L Pulse Oximetry 18 L 97 06/21/19 22:00 06/21/19 23:26 06/22/19 00:00 Temperature 97.8 F Pulse Rate 92 93
--- NOTE | 2019-06-22 09:41 | PM.IMPN ---
Progress Note: A&P Assessment and Plan (1) Acute cholangitis: Code(s): K83.09 - Other cholangitis Status: Acute Assessment and Plan: Vanc and Zosyn day 1 [address] suggests CBD stones 4/5 successful ERCP with extraction upon large common bile duct stone and resolution of symptoms 4/5 start with clear liquids and advance diet as tolerated (2) Severe sepsis: Code(s): A41.9 - Sepsis, unspecified organism; R65.20 - Severe sepsis without septic shock Status: Acute Assessment and Plan: 4/5 off Levophed IVF Vanc/Zosyn day 2 (3) Hx of cholecystectomy: Code(s): Z90.49 - Acquired absence of other specified parts of digestive tract Status: Acute Assessment and Plan: About 2016 in [place], [place] Records requested (4) COPD (chronic obstructive pulmonary disease): Code(s): J44.9 - Chronic obstructive pulmonary disease, unspecified Status: Acute Assessment and Plan: Uses PRN inhaler at home (5) Atrial fibrillation with RVR: Code(s): I48.91 - Unspecified atrial fibrillation Status: Acute Assessment and Plan: Denied prior hx of afib Improved with treatment of hypotension Echocardiogram with LVEF 35-40%, mild MR, mild 4/5 resume metoprolol 4/5 resume aspirin 81 mg daily Consider initiating anticoagulation 48 hours postprocedure if no bleeding (6) Hypertension, essential: Code(s): I10 - Essential (primary) hypertension Status: Acute Assessment and Plan: Resolved (7) Elevated troponin I level: Code(s): R79.89 - Other specified abnormal findings of blood chemistry Status: Acute Assessment and Plan: Likely due to AFIB RVR, Sepsis with shock Flat response No ACS Subjective Date/time seen: 06/22/19 09:41 Interval history: 84-year-old female admitted 06/20 with acute cholangitis and common bowel duct stone. 4/5 uneventful ERCP with extraction of 1 large common bowel duct stone. Patient feels much better postprocedure. Denied abdominal pain nausea vomiting. Denied diarrhea. Denied dysuria hematuria. Denied chest pain or shortness of breath. Denied weakness. Denied abnormal bleeding Review of Systems Review of Systems: All systems reviewed & are unremarkable except as noted in HPI and below Exam Narrative: Exam Narrative: HEENT: EOMI, PERRL, pharyngeal mucosa pink and intact NECK: No JVD CHEST: Clear to auscultation. Normal effort. HEART: NL S1/S2, regular, no murmur ABDOMEN: BS+, soft, nontender, no mass, no bruits EXTREMITIES: No cyanosis, edema, or clubbing NEUROLOGIC: CN intact and symmetric to inspection. MUSCULOSKELETAL: Tone and strength symmetric. PSYCH: Alert. Oriented to person, place, and time. Objective Data Vital Signs Vital Signs: Vital Signs - 24 hr 06/21/19 10:00 06/21/19 12:00 06/21/19 14:00 Temperature Pulse Rate 86 88 82 Respiratory Rate 18 18 18 Blood Pressure 126/75 94/66 L 102/67 Pulse Oximetry 99 98 98 06/21/19 16:00 06/21/19 18:00 06/21/19 20:00 Temperature 97.8 F 97.8 F Pulse Rate 88 88 81 Respiratory Rate 16 95 H 22 H Blood Pressure 117/52 L 114/72 108/54 L Pulse Oximetry 18 L 97 06/21/19 22:00 06/21/19 23:26 06/22/19 00:00 Temperature 97.8 F Pulse Rate 92 93 107 H Respiratory Rate 18 18 Blood Pressure 128/67 104/64 Pulse Oximetry 99 95 06/22/19 02:00 06/22/19 04:00 06/22/19 06:00 Temperature 97.9 F Pulse Rate 109 H 108 H 100 Respiratory Rate 18 19 18 Blood Pressure 124/78 115/79 108/67 Pulse Oximetry 100 100 100 06/22/19 07:04 06/22/19 08:01 06/22/19 08:20 Temperature Pulse Rate 103 H 99 101 H Respiratory Rate 16 16 18 Blood Pressure 139/75 107/68 123/86 Pulse Oximetry 97 100 99 06/22/19 08:30 Temperature Pulse Rate 103 H Respiratory Rate 96 H Blood Pressure 120/94 H Pulse Oximetry 18 L Intake/Output Intake/Output: Intake & Output 06/19/19 06/20/19 06/21/19 06/22/19 23:59
[2019-06-22] MEDS: PANTOPRAZOLE 40 MG TABLET PO ×2 (10:37→20:05)
[2019-06-22] MEDS: METOPROLOL SUCCINATE EXT REL 100 MG TABCR PO (12:03)
[2019-06-22 12:32] LABS: Glucose Point of Care 133 (65-105)
--- NOTE | 2019-06-22 12:36 | WPDINTPN ---
Progress Note: A&P Assessment and Plan (1) Septic shock: Code(s): A41.9 - Sepsis, unspecified organism; R65.21 - Severe sepsis with septic shock Status: Acute Assessment and Plan: patient presented with her abdominal pain, found to have acute cholangitis, patient given IV fluid despite which she remained hypotensive, - PATIENT IS OFF LEVOPHED - continue Zosy, received 1 dose of vancomycin - patient had an ERCP with extraction of a 9 mm bile duct stone - blood cultures growing gram-negative bacilli 1 of 2 bottles - lactic acid has normalized (2) Acute cholangitis: Code(s): K83.09 - Other cholangitis Status: Acute Assessment and Plan: CT abdomen showed choledocholithiasis. elevated LFTs and bilirubin - Possible acute cholangitis - - GI was consulted, ERCP full 08/06/2019 with extraction of 9 mm bile duct stone (3) Elevated troponin I level: Code(s): R79.89 - Other specified abnormal findings of blood chemistry Status: Acute Assessment and Plan: mildly elevated troponin level, plateaued, likely secondary to type 2 infarct which could be related to septic shock and ischemic demand will continue to monitor. Patient is asymptomatic (4) Hypertension, essential: Code(s): I10 - Essential (primary) hypertension Status: Acute Assessment and Plan: hold all antihypertensives as patient on Levophed which is currently off. Will continue to monitor blood pressures (5) Hx of cholecystectomy: Code(s): Z90.49 - Acquired absence of other specified parts of digestive tract Status: Acute Assessment and Plan: patient stated she had a cholecystectomy [facility] in the last 2-3 years, will obtain records (6) Atrial fibrillation with RVR: Code(s): I48.91 - Unspecified atrial fibrillation Status: Acute Assessment and Plan: RESOLVED: patient went to AFib RVR, no known history, will continue to monitor Additional Plan discussed with patient at length and updated her with her condition and plan of care. Code status: Full code critical care time spent: 32 minutes Due to a high probability of clinically significant, life threatening deterioration, the patient required my highest level of preparedness to intervene emergently and I personally spent this critical care time directly and personally managing the patient. This critical care time included obtaining a history; examining the patient; pulse oximetry; ordering and review of studies; arranging urgent treatment with development of a management plan; evaluation of patient's response to treatment; frequent reassessment; and discussions with other providers. It was exclusive of separately billable procedures and treating other patients and teaching time. Please see Assessment and Plan section and the rest of the note for further information on patient assessment and treatment Subjective Date/time seen: 06/22/19 12:36 Reason for consult: Cholangitis, septic shock, choledocholithiasis 06/22/2019: patient seen and examined this morning after she had a ERCP with removal of 9 mm bile duct stone. Patient is asymptomatic, denies any abdominal pain, nausea, vomiting. Is off Levophed. Blood pressures are stable. Blood culture growing gram-negative bacilli 1 of 2 bottles. Urine output has been adequate. Patient is on room air with good O2 sats, afebrile. denies any chest pain or shortness of breath Review of Systems Review of Systems: All systems reviewed & are unremarkable except as noted in HPI and below Exam Const: General: comfortable and no acute distress HENMT: Mouth: Yes dry mucous membranes Eyes: Sclera: sclerae normal Pupils: Equal, round and reactive pupils present Neck: Neck: supple and no JVD Resp: Effort & Inspection: normal respiratory effort Auscultation: clear to auscultation bilaterally Cardio: Rate: regular rate Rhyt
--- NOTE | 2019-06-22 12:51 | PC.NURSE ---
This patient, Anastasia Jay, was transferred to [[id number] ] on 06/22/19 at 1251. Personal belongings sent with patient. Belongings list checked and signed with receiving [ ]. Report given to [apolinar sullivan ]. Appropriate documentation sent with patient.
--- NOTE | 2019-06-22 12:55 | PC.NURSE ---
This patient, Anastasia Jay, was received from ICU on 06/22/19 at 1255. Personal belongings list checked and signed. Patient/family oriented to unit policies and routines. Report received from SORAIDA Edwards.
[2019-06-22 16:26] LABS: Glucose Point of Care 103 (65-105)
[2019-06-22] MEDS: AMITRIPTYLINE HCL 25 MG TABLET 50 MG PO (20:05)
[2019-06-22 21:37] LABS: Glucose Point of Care 74 (65-105)
[2019-06-23 01:37] VITALS: BP 125/71; PULSE 65; RESP 18; TEMP 36.2; O2SAT 96
[2019-06-23 05:55] VITALS: BP 129/65; PULSE 88; RESP 16; TEMP 36.3; O2SAT 97
--- NOTE | 2019-06-23 07:17 | WPDGIPROGNO ---
Progress Note: A&P Additional Plan Patient alert. Vital signs stable. She denies abdominal pain this morning. Physical exam patient is alert. Vital signs stable. She is anicteric. Lungs are clear to auscultation and percussion. Heart is without murmur or extra sounds. Abdominal exam is soft nontender no organomegaly. Impression 1. Choledocholithiasis. Patient now status post ERCP and clearance of the common bile duct. LFTs have begun to improve. Plan is to complete course of antibiotics. Advance diet as tolerated. Subjective Date/time seen: 06/23/19 07:17 Objective Data Vital Signs Vital Signs: Vital Signs - 24 hr 06/22/19 08:01 06/22/19 08:20 06/22/19 08:30 Temperature Pulse Rate 99 101 H 103 H Respiratory Rate 16 18 96 H Blood Pressure 107/68 123/86 120/94 H Pulse Oximetry 100 99 18 L 06/22/19 09:00 06/22/19 10:00 06/22/19 12:00 Temperature Pulse Rate 111 H 110 H 118 H Respiratory Rate 20 18 14 Blood Pressure 131/93 H 136/84 125/93 H Pulse Oximetry 95 96 96 06/22/19 12:03 06/22/19 15:06 06/22/19 21:38 Temperature 36.8 C 36.4 C L Pulse Rate 122 H 85 102 H Respiratory Rate 16 16 Blood Pressure 121/70 135/71 Pulse Oximetry 93 98 06/23/19 01:37 06/23/19 05:55 Temperature 36.2 C L 36.3 C L Pulse Rate 65 88 Respiratory Rate 18 16 Blood Pressure 125/71 129/65 Pulse Oximetry 96 97 Intake/Output Intake/Output: Intake & Output 06/20/19 06/21/19 06/22/19 06/23/19 23:59 23:59 23:59 23:59 Intake Total 3920 2855 250 Output Total 450 1400 Balance 3470 1455 250 Meds/Results Medications: Active Medications Generic Name Dose Route Start Last Admin Trade Name Freq PRN Reason Stop Dose Admin Amitriptyline HCl 50 mg 06/21/19 21:00 06/22/19 20:05 Elavil PO 50 mg HS BILL Administration Aspirin 81 mg 06/21/19 09:00 06/21/19 13:45 Aspirin Ec PO Not Given DAILY BILL Dextrose 12.5 gm 06/21/19 10:37 Dextrose 50% Syringe IV PUSH PRN PRN Hypoglycemia Protocol Glucagon 1 mg 06/21/19 10:37 Glucagon For Inj IM PRN PRN Hypoglycemia Protocol Glucose 15 gm 06/21/19 10:37 Glutose 15 PO PRN PRN Hypoglycemia Protocol Piperacillin Sod/Tazobactam Sod 2.25 gm in 50 mls @ 100 mls/hr 06/21/19 10:30 06/23/19 06:46 Zosyn 2.25 Gm/D5w 50 Ml IVPB 100 mls/hr Q6HR BILL Administration Dextrose 1,000 mls @ 100 mls/hr 06/21/19 10:37 Dextrose 5% 1,000 Ml IVPB PRN PRN Hypoglycemia Protocol Insulin Aspart 2 - 5 units 06/21/19 12:00 06/22/19 16:23 Novolog SUB-Q Not Given TIDWM [facility] Protocol Metoprolol Succinate 100 mg 06/21/19 09:00 06/21/19 09:14 Toprol Xl PO Not Given DAILY [facility] Morphine Sulfate 4 mg 06/21/19 04:45 Morphine Sulfate Inj IV PUSH Q2H PRN Pain Rated 7-10 Ondansetron HCl 4 mg 06/21/19 04:45 Zofran Inj IV PUSH Q4H PRN Nausea Pantoprazole Sodium 40 mg 06/21/19 09:00 06/22/19 20:05 Protonix PO 40 mg Q12HR BILL Administration Simvastatin 20 mg 06/21/19 09:00 06/21/19 13:45 Zocor PO Not Given DAILY [facility] Radiology Results: ITS Impressions Chest X-Ray 06/21/19 08:45 IMPRESSION: Right internal jugular central venous catheter in lower superior vena cava; no evidence of pneumothorax Cardiomegaly Abdomen/Pelvis CT 06/21/19 09:44 IMPRESSION: Probable distal common bile duct stone; recommend correlation with serum bilirubin. Consider MRCP or ERCP as clinically appropriate Probable renal cysts; limited noncontrast examination Atherosclerosis Diverticulosis of the left colon; no CT evidence of diverticulitis Normal appendix Endo Retro Cholangiopancreatogram 06/22/19 10:00 IMPRESSION: Choledocholithiasis Labs Labs: Laboratory Results - last 24 hr 06/22/19 06/22/19 06/22/19 12:01 16:22 20:41 POC Capillary Glucose 133 H 103 74
--- NOTE | 2019-06-23 07:26 | WPDANESPN ---
Anes - Prog Note Post-Op Date/Time: 06/23/19 07:26 Cardiovascular status: normal Respiratory status: normal Airway patency: baseline Mental status: baseline Post-Op hydration status: normal Vital Signs: Last Vital Signs Temp 36.3 C L 06/23/19 05:55 Pulse 88 06/23/19 05:55 Resp 16 06/23/19 05:55 BP 129/65 06/23/19 05:55 Pulse Ox 97 06/23/19 05:55 Pain Score (VAS): 0/10. Patient resting in bed at time of assessment, appears comfortable. I/O: Intake & Output 06/22/19 06/22/19 06/23/19 15:59 23:59 07:59 Intake Total 730 50 300 Balance 730 50 300 Laboratory Tests 06/22/19 04:56 06/22/19 04:56 06/22/19 06/22/19 06/22/19 12:01 16:22 20:41 POC Capillary Glucose 133 H 103 74 Microbiology 06/21/19 01:53 Blood Blood Culture - Preliminary 06/21/19 01:53 Blood Blood Culture - Preliminary Post-procedural complaints: none Patient Feedback: Patient satisfied with anesthetic care.
[2019-06-23] MEDS: SIMVASTATIN 20 MG TABLET PO (07:39)
[2019-06-23] MEDS: METOPROLOL SUCCINATE EXT REL 100 MG TABCR PO (07:39)
[2019-06-23] MEDS: PANTOPRAZOLE 40 MG TABLET PO ×2 (07:39→20:55)
[2019-06-23] MEDS: ASPIRIN 81 MG ENTERIC TABLET PO (07:39)
[2019-06-23 08:49] LABS: Hematocrit 31.3 % (37.0-47.0); Hemoglobin 9.8 g/dL (12.0-15.0); Mean Corpuscular HGB Conc 31.3 g/dl (32-36); Mean Corpuscular Hemoglobin 29.4 pg (26-34); Mean Platelet Volume 11.6 fl (7.4-10.4); Platelet Count Result 143 k/mm3 (150-375); Red Blood Count 3.33 M/mm3 (4.2-5.4); Red Cell Distribution Width 14.5 % (11.5-14.5)
[2019-06-23 09:08] LABS: Alanine Aminotransferase 100 U/L (4-35); Albumin Level 2.8 g/dL (3.5-5.1); Alkaline Phosphatase 219 U/L (38-126); Aspartate Amino Transferase 25 U/L (14-36); Bilirubin,Total 0.8 mg/dL (0.2-1.3); Blood Urea Nitrogen 14 mg/dL (7-17); Calcium 8.3 mg/dL (8.4-10.2); Carbon Dioxide 28 mmol/L (22-30); Chloride 104 mmol/L (98-107); Estimated CRCL calculation 37 ml/min; Estimated Glomerular Filt Rate 53; Glucose 157 mg/dL (65-105); Potassium 3.9 mmol/L (3.4-5.0); Sodium 137 mmol/L (137-145)
[2019-06-23 11:31] LABS: Glucose Point of Care 105 (65-105)
[2019-06-23 11:31] LABS: Glucose Point of Care 115 (65-105)
[2019-06-23 13:40] VITALS: BP 139/89; PULSE 95; RESP 16; TEMP 36.1; O2SAT 99
--- NOTE | 2019-06-23 15:26 | P.PNIM_ITS ---
Progress Note: A&P Assessment and Plan (1) Acute cholangitis: Code(s): K83.09 - Other cholangitis Status: Acute Assessment and Plan: * Zosyn day 3 --> 6 transition to ceftriaxone for e coli in blood. Plan 7 days IV therapy. * CT suggests CBD stones * 4/5 successful ERCP with extraction upon large common bile duct stone and resolution of symptoms * 4/5 started with clear liquids and advance to solids (2) Severe sepsis: Code(s): A41.9 - Sepsis, unspecified organism; R65.20 - Severe sepsis without septic shock Status: Acute Assessment and Plan: * 4/5 off Levophed * Resolved (3) Hx of cholecystectomy: Code(s): Z90.49 - Acquired absence of other specified parts of digestive tract Status: Acute Assessment and Plan: * About 2016 in [place], [place] (4) COPD (chronic obstructive pulmonary disease): Code(s): J44.9 - Chronic obstructive pulmonary disease, unspecified Status: Acute Assessment and Plan: * Uses PRN inhaler at home (5) Atrial fibrillation with RVR: Code(s): I48.91 - Unspecified atrial fibrillation Status: Acute Assessment and Plan: * Denied prior hx of afib * Improved with treatment of hypotension * Echocardiogram with LVEF 35-40%, mild MR, mild , LA mildly enlarged , focal wall motion abnormalities * LV and wall motion changes may be due to rate as she has no prior hx of chest pain * 4/5 resumed metoprolol * 4/5 resumed aspirin 81 mg daily * CHADS2-VASC2 score 4 (about 5% annual stroke risk) * HAS-BLED score 2 (moderate bleeding risk) * Given no prior hx of afib and occurrence during acute illness, would consider monitoring for recurrence with 30 day monitor * Consider repeat echo as outpatient (6) Hypertension, essential: Code(s): I10 - Essential (primary) hypertension Status: Acute Assessment and Plan: * Resolved (7) Elevated troponin I level: Code(s): R79.89 - Other specified abnormal findings of blood chemistry Status: Acute Assessment and Plan: * Likely due to AFIB RVR, Sepsis with shock * Flat response * No ACS Subjective Date/time seen: 06/23/19 15:26 Interval history: 84-year-old female admitted 4/4 with acute cholangitis and common bowel duct stone. 4/5 uneventful ERCP with extraction of 1 large common bowel duct stone. Patient feels much better postprocedure. 4/6 Tolerating diet. Up with assist w/o problems. No BM yet. Denied abdominal pain nausea vomiting. Denied diarrhea. Denied dysuria hematuria. Denied chest pain or shortness of breath. Denied weakness. Denied abnormal bleeding Review of Systems Review of Systems: All systems reviewed & are unremarkable except as noted in HPI and below Exam Narrative: Exam Narrative: HEENT: EOMI, PERRL, pharyngeal mucosa pink and intact NECK: No JVD CHEST: Clear to auscultation. Normal effort. HEART: NL S1/S2, regular, no murmur ABDOMEN: BS+, soft, nontender, no mass, no bruits EXTREMITIES: No cyanosis, edema, or clubbing NEUROLOGIC: CN intact and symmetric to inspection. MUSCULOSKELETAL: Tone and strength symmetric. PSYCH: Alert. Oriented to person, place, and time. Objective Data Vital Signs Vital Signs: Vital Signs - 24 hr 06/22/19 21:38 06/23/19 01:37 06/23/19 05:55 Temperature 97.5 F L 97.1 F L 97.3 F L Pulse Rate 102 H 65 88 Respiratory Rate 16 18 16 Blood Pre
--- NOTE | 2019-06-23 15:26 | PM.IMPN ---
Progress Note: A&P Assessment and Plan (1) Acute cholangitis: Code(s): K83.09 - Other cholangitis Status: Acute Assessment and Plan: Zosyn day 3 --> 06/22 transition to ceftriaxone for e coli in blood. Plan [address] suggests CBD stones 4/5 successful ERCP with extraction upon large common bile duct stone and resolution of symptoms 4/5 started with clear liquids and advance to solids (2) Severe sepsis: Code(s): A41.9 - Sepsis, unspecified organism; R65.20 - Severe sepsis without septic shock Status: Acute Assessment and Plan: 4/5 off Levophed Resolved (3) Hx of cholecystectomy: Code(s): Z90.49 - Acquired absence of other specified parts of digestive tract Status: Acute Assessment and Plan: About 2016 in [place], [place] (4) COPD (chronic obstructive pulmonary disease): Code(s): J44.9 - Chronic obstructive pulmonary disease, unspecified Status: Acute Assessment and Plan: Uses PRN inhaler at home (5) Atrial fibrillation with RVR: Code(s): I48.91 - Unspecified atrial fibrillation Status: Acute Assessment and Plan: Denied prior hx of afib Improved with treatment of hypotension Echocardiogram with LVEF 35-40%, mild MR, mild , LA mildly enlarged , focal wall motion abnormalities LV and wall motion changes may be due to rate as she has no prior hx of chest pain 4/5 resumed metoprolol 4/5 resumed aspirin 81 mg daily CHADS2-VASC2 score 4 (about 5% annual stroke risk) HAS-BLED score 2 (moderate bleeding risk) Given no prior hx of afib and occurrence during acute illness, would consider monitoring for recurrence with 30 day monitor Consider repeat echo as outpatient (6) Hypertension, essential: Code(s): I10 - Essential (primary) hypertension Status: Acute Assessment and Plan: Resolved (7) Elevated troponin I level: Code(s): R79.89 - Other specified abnormal findings of blood chemistry Status: Acute Assessment and Plan: Likely due to AFIB RVR, Sepsis with shock Flat response No ACS Subjective Date/time seen: 06/23/19 15:26 Interval history: 84-year-old female admitted 06/20 with acute cholangitis and common bowel duct stone. 4/5 uneventful ERCP with extraction of 1 large common bowel duct stone. Patient feels much better postprocedure. 4/6 Tolerating diet. Up with assist w/o problems. No BM yet. Denied abdominal pain nausea vomiting. Denied diarrhea. Denied dysuria hematuria. Denied chest pain or shortness of breath. Denied weakness. Denied abnormal bleeding Review of Systems Review of Systems: All systems reviewed & are unremarkable except as noted in HPI and below Exam Narrative: Exam Narrative: HEENT: EOMI, PERRL, pharyngeal mucosa pink and intact NECK: No JVD CHEST: Clear to auscultation. Normal effort. HEART: NL S1/S2, regular, no murmur ABDOMEN: BS+, soft, nontender, no mass, no bruits EXTREMITIES: No cyanosis, edema, or clubbing NEUROLOGIC: CN intact and symmetric to inspection. MUSCULOSKELETAL: Tone and strength symmetric. PSYCH: Alert. Oriented to person, place, and time. Objective Data Vital Signs Vital Signs: Vital Signs - 24 hr 06/22/19 21:38 06/23/19 01:37 06/23/19 05:55 Temperature 97.5 F L 97.1 F L 97.3 F L Pulse Rate 102 H 65 88 Respiratory Rate 16 18 16 Blood Pressure 135/71 125/71 129/65 Pulse Oximetry 98 96 97 06/23/19 13:40 Temperature 96.9 F L Pulse Rate 95 Respiratory Rate 16 Blood Pressure 139/89 Pulse Oximetry 99 Intake/Output Intake/Output: Intake & Output 06/20/19 06/21/19 06/22/19 06/23/19 23:59 23:59 23:59 23:59 Intake Total 3920 2855 950 Output Total 450 1400 400 Balance 3470 1455 550 Meds/Results Medications: Active Medications Generic Name Dose Route Start Last Admin Trade Name Freq PRN Reason Stop Dose Admin Amitriptyline HCl 50 mg 06/21/19 21:00 06/22/19 20:05
[2019-06-23 16:31] LABS: Glucose Point of Care 90 (65-105)
[2019-06-23 20:00] VITALS: PULSE 91
[2019-06-23] MEDS: AMITRIPTYLINE HCL 25 MG TABLET 50 MG PO (20:55)
[2019-06-23 21:33] VITALS: BP 139/93; PULSE 94; RESP 18; TEMP 36; O2SAT 98
[2019-06-23 21:49] LABS: Glucose Point of Care 122 (65-105)
[2019-06-24] VITALS (7 sets, daily range): BP systolic 128–147; BP diastolic 73–87; PULSE 70–108; RESP 16–20; TEMP 35.8–36.7; O2SAT 99–100
[2019-06-24 04:45] LABS: Hematocrit 32.1 % (37.0-47.0); Hemoglobin 10.1 g/dL (12.0-15.0); Mean Corpuscular HGB Conc 31.5 g/dl (32-36); Mean Corpuscular Hemoglobin 29.3 pg (26-34); Mean Platelet Volume 11.6 fl (7.4-10.4); Platelet Count Result 160 k/mm3 (150-375); Red Blood Count 3.45 M/mm3 (4.2-5.4); Red Cell Distribution Width 14.4 % (11.5-14.5); White Blood Count 5.8 K/mm3 (4.5-10.0)
[2019-06-24 05:05] LABS: Alanine Aminotransferase 75 U/L (4-35); Albumin Level 2.8 g/dL (3.5-5.1); Alkaline Phosphatase 229 U/L (38-126); Aspartate Amino Transferase 22 U/L (14-36); Bilirubin,Total 0.6 mg/dL (0.2-1.3); Blood Urea Nitrogen 13 mg/dL (7-17); Calcium 8.4 mg/dL (8.4-10.2); Carbon Dioxide 30 mmol/L (22-30); Chloride 104 mmol/L (98-107); Estimated CRCL calculation 40 ml/min; Estimated Glomerular Filt Rate 60; Glucose 129 mg/dL (65-105); Potassium 3.8 mmol/L (3.4-5.0); Sodium 138 mmol/L (137-145)
[2019-06-24 07:48] LABS: Glucose Point of Care 91 (65-105)
[2019-06-24] MEDS: PANTOPRAZOLE 40 MG TABLET PO ×2 (09:35→20:28)
[2019-06-24] MEDS: METOPROLOL SUCCINATE EXT REL 100 MG TABCR PO (09:35)
[2019-06-24] MEDS: SIMVASTATIN 20 MG TABLET PO (09:35)
[2019-06-24] MEDS: ASPIRIN 81 MG ENTERIC TABLET PO (09:35)
--- NOTE | 2019-06-24 10:04 | PM.CNCAR ---
Assessment and Plan Assessment and plan (1) Atrial fibrillation with RVR: Code(s): I48.91 - Unspecified atrial fibrillation Status: Acute Assessment and Plan: heart rate is controlled at this point with metoprolol. Uncertain length of duration. Certainly could be related to her acute illness although she does not feel her palpitations and she was already on a large dose of metoprolol, it is certainly possible that she has had longer standing atrial fibrillation then simply during this hospitalization for cholangitis. Regardless, she also has a chads Vasc score of at least 5 and probably higher as she likely has underlying vascular disease also. therefore , anticoagulation is warranted. I am going to stop her aspirin, start her on Xarelto 20 mg p.o. daily if this is okay with GI/surgery. Will consider outpatient cardioversion down the line. (2) Hypertension, essential: Code(s): I10 - Essential (primary) hypertension Status: Acute Assessment and Plan: Slightly above goal. I am uncertain as to why this patient is not on an HELLEN-inhibitor given her diabetes history. Would not Resume her nifedipine given her cardiomyopathy. Additionally if further blood pressure control would be needed, HELLEN-inhibitor should be used. Therefore, I am going to. Start her on low-dose lisinopril at 5 mg daily and up titrate as need be. This would also obviously help her cardiomyopathy. (3) Type 2 diabetes mellitus with hyperglycemia: Code(s): E11.65 - Type 2 diabetes mellitus with hyperglycemia Status: Acute (4) Cardiomyopathy: Code(s): I42.9 - Cardiomyopathy, unspecified Status: Acute Assessment and Plan: Continue beta-nereyda. Add HELLEN-inhibitor. She will need outpatient ischemic workup and repeat echocardiogram. History of Present Illness History of Present Illness Consult date/time: 06/24/19 10:04 Requesting physician: Yvan Lombardi MD Consult reason: atrial fibrillation Reason For Visit: Cholangitis Narrative: Date of service 06/24/2019 History patient is an 84-year-old female who presented to the hospital because of abdominal pain. She is found have cholangitis and underwent an ERCP stone removal. She is currently feeling better. In the process of being evaluated though she was noted to have atrial fibrillation as well as an echocardiogram performed showing a moderately reduced ejection fraction of 40% with wall motion abnormalities. Cardiology consultation was therefore requested. Patient denies any chest pain, unusual shortness of breath decides that which she attributes to her COPD, syncope, presyncope, palpitations or bleeding problems. Her abdominal pain has improved. She denies any paroxysmal nocturnal dyspnea or orthopnea. Review of Systems Review of Systems: All systems reviewed & are unremarkable except as noted in HPI and below Constitutional: Constitutional: Denies body ache(s) Eyes: Eyes: Denies photophobia ENT: Denies nasal discharge Cardiovascular: Cardiovascular: Denies chest pain and Denies palpitations Respiratory: Respiratory: Reports dyspnea Gastrointestinal: Gastrointestinal: Reports abdominal pain Genitourinary: Genitourinary: Denies hematuria Musculoskeletal: Musculoskeletal: Denies arthralgias Integumentary/Breasts: Skin/Breast: Denies dry skin and Denies rash Neurologic: Denies confusion Psychiatric: Psychiatric: Denies anxiety and Denies confusion Endocrine: Endocrine: Denies fatigue and Denies flushing Hematologic/Lymphatic: Hematologic/Lymphatic: Denies easy bleeding and Denies easy bruising Allergic/Immunologic: Allergic/Immunologic: Denies lip swelling PMFSH Past Medical History Medical History COPD (chronic obstructive pulmonary disease) Hyperlipidemia Hypertension, essential Type 2 diabetes mellitus with hyperglycemia Surgical History Surgical Histo
[2019-06-24] MEDS: lisinopriL 5 MG TABLET PO (11:28)
[2019-06-24 12:12] LABS: Glucose Point of Care 137 (65-105)
[2019-06-24] MEDS: CYANOCOBALAMIN INJ 1,000 MCG/ML VIAL 1000 MCG IM (13:17)
--- NOTE | 2019-06-24 15:03 | PM.IMPN ---
Progress Note: A&P Assessment and Plan (1) Acute cholangitis: Code(s): K83.09 - Other cholangitis Status: Acute Assessment and Plan: Day 4 of 7 IV antibiotics, transition to ceftriaxone / for e coli in blood. 4/5 successful ERCP with extraction upon large common bile duct stone and resolution of symptoms diet advanced and tolerating well (2) Severe sepsis: Code(s): A41.9 - Sepsis, unspecified organism; R65.20 - Severe sepsis without septic shock Status: Acute Assessment and Plan: 4/5 off Levophed Resolved (3) COPD (chronic obstructive pulmonary disease): Code(s): J44.9 - Chronic obstructive pulmonary disease, unspecified Status: Acute Assessment and Plan: Uses PRN inhaler at home (4) Atrial fibrillation with RVR: Code(s): I48.91 - Unspecified atrial fibrillation Status: Acute Assessment and Plan: Denied prior hx of afib Improved with treatment of hypotension Echocardiogram with LVEF 35-40%, mild MR, mild , LA mildly enlarged , focal wall motion abnormalities LV and wall motion changes may be due to rate as she has no prior hx of chest pain 4/5 resumed metoprolol CHADS2-VASC2 score 4 (about 5% annual stroke risk) HAS-BLED score 2 (moderate bleeding risk) Given no prior hx of afib and occurrence during acute illness, would consider monitoring for recurrence with 30 day monitor but cardiology anticoagulating with possible cardioversion and repeat echo at later date (5) Hypertension, essential: Code(s): I10 - Essential (primary) hypertension Status: Acute Assessment and Plan: Dennis started with betablocker with low EF (6) Elevated troponin I level: Code(s): R79.89 - Other specified abnormal findings of blood chemistry Status: Acute Assessment and Plan: Likely due to AFIB RVR, Sepsis with shock Flat response No ACS Subjective Date/time seen: 06/24/19 15:03 Interval history: Date of visit 06/23. 84-year-old female admitted 06/20 with acute cholangitis and common bowel duct stone. /5 uneventful ERCP with extraction of 1 large common bowel duct stone. Patient has no complaints of abdominal pain take diet well. No shortness breath palpitations or chest pain Exam Narrative: Exam Narrative: Blood pressure 140/86 pulse is 80 irregular HEENT: PERRL, sclera anicteric NECK: No JVD CHEST: Clear to auscultation. Normal effort. HEART: NL S1/S2, irregular regular, no murmur ABDOMEN: BS+, soft, nontender, no mass, no bruits EXTREMITIES: No cyanosis, edema, or clubbing NEUROLOGIC: CN intact and symmetric to inspection. PSYCH: Alert. Oriented to person, place, and time. Objective Data Vital Signs Vital Signs: Vital Signs - 24 hr 06/23/19 20:00 06/23/19 21:33 06/24/19 00:00 Temperature 36.0 C L Pulse Rate 91 94 99 Respiratory Rate 18 Blood Pressure 139/93 H Pulse Oximetry 98 06/24/19 04:00 06/24/19 06:11 06/24/19 08:00 Temperature 35.8 C L Pulse Rate 108 H 70 70 Respiratory Rate 16 16 Blood Pressure 128/81 Pulse Oximetry 99 99 06/24/19 12:00 06/24/19 14:00 Temperature 36.7 C Pulse Rate 108 H 84 Respiratory Rate 17 Blood Pressure 139/87 Pulse Oximetry 100 Intake/Output Intake/Output: Intake & Output 06/21/19 06/22/19 06/23/19 06/24/19 23:59 23:59 23:59 23:59 Intake Total 3920 2855 1390 780 Output Total 450 0026 031 4429 Balance 3470 1455 990 -920 Meds/Results Medications: Active Medications Generic Name Dose Route Start Last Admin Trade Name Freq PRN Reason Stop Dose Admin Amitriptyline HCl 50 mg 06/21/19 21:00 06/23/19 20:55 Elavil PO 50 mg HS BILL Administration Dextrose 12.5 gm 06/21/19 10:37 Dextrose 50% Syringe IV PUSH PRN PRN Hypoglycemia Protocol Glucagon 1 mg 06/21/19 10:37 Glucagon For Inj IM PRN PRN Hypoglycemia Protocol Glucose 15 gm 06/21/19 10:37 Glutose
[2019-06-24] MEDS: RIVAROXABAN 20 MG TABLET PO (17:28)
[2019-06-24 17:53] LABS: Glucose Point of Care 106 (65-105)
[2019-06-24] MEDS: AMITRIPTYLINE HCL 25 MG TABLET 50 MG PO (20:27)
[2019-06-24 22:22] LABS: Glucose Point of Care 133 (65-105)
[2019-06-25 04:47] VITALS: BP 144/68; PULSE 97; RESP 20; TEMP 35.8; O2SAT 95
[2019-06-25 05:35] LABS: Alanine Aminotransferase 55 U/L (4-35); Albumin Level 2.8 g/dL (3.5-5.1); Alkaline Phosphatase 238 U/L (38-126); Aspartate Amino Transferase 22 U/L (14-36); Bilirubin,Total 0.5 mg/dL (0.2-1.3); Blood Urea Nitrogen 16 mg/dL (7-17); Calcium 8.2 mg/dL (8.4-10.2); Carbon Dioxide 30 mmol/L (22-30); Chloride 103 mmol/L (98-107); Estimated CRCL calculation 47 ml/min; Estimated Glomerular Filt Rate 60; Glucose 115 mg/dL (65-105); Potassium 3.9 mmol/L (3.4-5.0); Sodium 138 mmol/L (137-145)
[2019-06-25 07:37] LABS: Glucose Point of Care 103 (65-105)
[2019-06-25] MEDS: PANTOPRAZOLE 40 MG TABLET PO ×2 (08:01→21:32)
[2019-06-25] MEDS: lisinopriL 5 MG TABLET PO (08:01)
[2019-06-25] MEDS: polyethylene glycoL 3350 17 GM POWD.PACK PO (08:01)
[2019-06-25] MEDS: METOPROLOL SUCCINATE EXT REL 100 MG TABCR PO (08:01)
[2019-06-25] MEDS: SIMVASTATIN 20 MG TABLET PO (08:01)
--- NOTE | 2019-06-25 08:02 | WPDGIPROGNO ---
Progress Note: A&P Additional Plan Patient alert and comfortable this morning. She denies abdominal pain. Physical exam reveals her to be alert. Vital signs stable. Pulse is irregularly irregular. Heart without murmur. Abdomen is soft and nontender. Labs reveal marked improvement of LFTs. Impression 1. Choledocholithiasis. Now status post ERCP and removal of a large common bile duct gallstone. Patient tolerated the procedure well. LFTs are returning to normal. 2. Cholangitis. Patient doing well on antibiotics suggest completing a 7-10 day course. 3. Atrial fibrillation. I spoke with cardiology service yesterday. At the present several days after ERCP I think it is okay to proceed with anticoagulation if necessary. Subjective Date/time seen: 06/25/19 08:02 Objective Data Vital Signs Vital Signs: Vital Signs - 24 hr 06/24/19 12:00 06/24/19 14:00 06/24/19 22:00 Temperature 36.7 C 35.9 C L Pulse Rate 108 H 84 81 Respiratory Rate 17 20 Blood Pressure 139/87 147/73 H Pulse Oximetry 100 99 06/25/19 04:47 Temperature 35.8 C L Pulse Rate 97 Respiratory Rate 20 Blood Pressure 144/68 H Pulse Oximetry 95 Intake/Output Intake/Output: Intake & Output 06/22/19 06/23/19 06/24/19 06/25/19 23:59 23:59 23:59 23:59 Intake Total 2855 1390 1280 100 Output Total 7248 195 7808 1350 Balance 1455 990 -1620 -1250 Meds/Results Medications: Active Medications Generic Name Dose Route Start Last Admin Trade Name Freq PRN Reason Stop Dose Admin Amitriptyline HCl 50 mg 06/21/19 21:00 06/24/19 20:27 Elavil PO 50 mg HS BILL Administration Dextrose 12.5 gm 06/21/19 10:37 Dextrose 50% Syringe IV PUSH PRN PRN Hypoglycemia Protocol Glucagon 1 mg 06/21/19 10:37 Glucagon For Inj IM PRN PRN Hypoglycemia Protocol Glucose 15 gm 06/21/19 10:37 Glutose 15 PO PRN PRN Hypoglycemia Protocol Dextrose 1,000 mls @ 100 mls/hr 06/21/19 10:37 Dextrose 5% 1,000 Ml IVPB PRN PRN Hypoglycemia Protocol Ceftriaxone Sodium/Dextrose 1 gm in 50 mls @ 100 mls/hr 06/24/19 18:00 06/24/19 18:00 Rocephin 1 Gm/D5w 50 Ml IVPB Infused QPM [facility] Infusion Insulin Aspart 2 - 5 units 06/21/19 12:00 06/25/19 07:38 Novolog SUB-Q Not Given TIDWM [facility] Protocol Lisinopril 5 mg 06/24/19 10:20 06/24/19 11:28 Prinivil PO 5 mg QAM BILL Administration Metoprolol Succinate 100 mg 06/21/19 09:00 06/24/19 09:35 Toprol Xl PO 100 mg DAILY [facility] Administration Morphine Sulfate 4 mg 06/21/19 04:45 Morphine Sulfate Inj IV PUSH Q2H PRN Pain Rated 7-10 Ondansetron HCl 4 mg 06/21/19 04:45 Zofran Inj IV PUSH Q4H PRN Nausea Pantoprazole Sodium 40 mg 06/21/19 09:00 06/24/19 20:28 Protonix PO 40 mg Q12HR [facility] Administration Polyethylene Glycol 17 gm 06/25/19 09:00 Miralax PO QAM BILL Rivaroxaban 20 mg 06/24/19 17:00 06/24/19 17:28 Xarelto PO 20 mg DAILY@1700 [facility] Administration Simvastatin 20 mg 06/21/19 09:00 06/24/19 09:35 Zocor PO 20 mg DAILY BILL Administration Radiology Results: ITS Impressions Chest X-Ray 06/21/19 08:45 IMPRESSION: Right internal jugular central venous catheter in lower superior vena cava; no evidence of pneumothorax Cardiomegaly Abdomen/Pelvis CT 06/21/19 09:44 IMPRESSION: Probable distal common bile duct stone; recommend correlation with serum bilirubin. Consider MRCP or ERCP as clinically appropriate Probable renal cysts; limited noncontrast examination Atherosclerosis Diverticulosis of the left colon; no CT evidence of diverticulitis Normal appendix Endo Retro Cholangiopancreatogram 06/22/19 10:00 IMPRESSION: Choledocholithiasis Labs Labs: Laboratory Results - last 24 hr 06/24/19 06/24/19 06/24/19 11:42 17:20 20:31 Sodium Potassium Chloride Carbon
--- NOTE | 2019-06-25 10:05 | PM.PNCARD ---
Progress Note: A&P Assessment and Plan (1) Atrial fibrillation with RVR: Code(s): I48.91 - Unspecified atrial fibrillation Status: Acute Assessment and Plan: heart rate is controlled at this point with metoprolol. Uncertain length of duration. Certainly could be related to her acute illness although she does not feel her palpitations and she was already on a large dose of metoprolol, it is certainly possible that she has had longer standing atrial fibrillation then simply during this hospitalization for cholangitis. Regardless, she also has a chads Vasc score of at least 5 and probably higher as she likely has underlying vascular disease also. therefore , anticoagulation is warranted. continue Xarelto (2) Hypertension, essential: Code(s): I10 - Essential (primary) hypertension Status: Acute Assessment and Plan: will increase lisinopril to 10 mg daily (3) Type 2 diabetes mellitus with hyperglycemia: Code(s): E11.65 - Type 2 diabetes mellitus with hyperglycemia Status: Acute (4) Cardiomyopathy: Code(s): I42.9 - Cardiomyopathy, unspecified Status: Acute Assessment and Plan: Continue beta-nereyda, HELLEN-inhibitor She will need outpatient ischemic workup and repeat echocardiogram. Subjective Date/time seen: 06/25/19 10:05 Interval history: 84-year-old female admitted 06/20 with acute cholangitis and common bowel duct stone.Cardiology consult for atrial fibrillation 06/21 uneventful ERCP with extraction of 1 large common bowel duct stone. Patient has no complaints of abdominal pain take diet well. No shortness breath palpitations or chest pain Date of service 06/25/2019: She denies any chest pain or shortness of breath. Feels okay. No palpitation Review of Systems Review of Systems: All systems reviewed & are unremarkable except as noted in HPI and below Constitutional: Constitutional: Denies body ache(s) and Denies fatigue Eyes: Eyes: Denies photophobia ENT: Denies lip swelling and Denies nasal discharge Cardiovascular: Cardiovascular: Denies chest pain, Denies palpitations and Reports dyspnea Respiratory: Respiratory: Reports dyspnea Gastrointestinal: Gastrointestinal: Reports abdominal pain Genitourinary: Genitourinary: Denies hematuria Musculoskeletal: Musculoskeletal: Denies arthralgias Integumentary/Breasts: Skin/Breast: Denies dry skin and Denies rash Neurologic: Denies confusion Psychiatric: Psychiatric: Denies anxiety and Denies confusion Endocrine: Endocrine: Denies fatigue, Denies flushing and Denies palpitations Hematologic/Lymphatic: Hematologic/Lymphatic: Denies easy bleeding and Denies easy bruising Allergic/Immunologic: Allergic/Immunologic: Denies lip swelling Exam Narrative: Exam Narrative: Alert oriented Const: General: no acute distress; No confusion Orientation/consciousness: No confusion HENMT: General nose exam: Normal nares present Eyes: Sclera: normal sclerae Direct Ophthalmoscopy: No photophobia Neck: Neck: no JVD Chest: Other: no reproducible chest wall pain to palpation Resp: Auscultation: clear to auscultation bilaterally Cardio: Rhythm: abnormal rhythm irregularly irregular GI: Inspection: normal to inspection GI Palp: No abdominal tenderness Skin: General skin exam: no erythema Neuro: General: No confusion Cognition (Neuro): normal cognition Speech: normal speech Extrem: General: normal to inspection Psych: Mental Status: mental status grossly normal Objective Data Vital Signs Vital Signs: Vital Signs - 24 hr 06/24/19 12:00 06/24/19 14:00 06/24/19 22:00 Temperature 36.7 C 35.9 C L Pulse Rate 108 H 84 81 Respiratory Rate 17 20 Blood Pressure 139/87 147/73 H Pulse Oximetry 100 99 06/25/19 04:47 Temperature 35.8 C L Pulse Rate 97 Respiratory Rate 20 Blood Pressure 144/68 H Pulse Oximetry 95 Intake/Output Intake/Output: Intake & Output 06/22/19 0
[2019-06-25 11:25] LABS: Glucose Point of Care 104 (65-105)
--- NOTE | 2019-06-25 12:10 | P.PNIM_ITS ---
Progress Note: A&P Assessment and Plan (1) Acute cholangitis: Code(s): K83.09 - Other cholangitis Status: Acute Assessment and Plan: * Day 5 of 7 IV antibiotics, transition to ceftriaxone /6 for e coli in blood. * 4/5 successful ERCP with extraction upon large common bile duct stone and resolution of symptoms * diet advanced and tolerating well (2) Severe sepsis: Code(s): A41.9 - Sepsis, unspecified organism; R65.20 - Severe sepsis without septic shock Status: Acute Assessment and Plan: * 4/5 off Levophed * Resolved (3) COPD (chronic obstructive pulmonary disease): Code(s): J44.9 - Chronic obstructive pulmonary disease, unspecified Status: Acute Assessment and Plan: * Uses PRN inhaler at home (4) Atrial fibrillation with RVR: Code(s): I48.91 - Unspecified atrial fibrillation Status: Acute Assessment and Plan: * Denied prior hx of afib * Improved with treatment of hypotension * Echocardiogram with LVEF 35-40%, mild MR, mild , LA mildly enlarged , focal wall motion abnormalities * LV and wall motion changes may be due to rate as she has no prior hx of chest pain * 4/5 resumed metoprolol * CHADS2-VASC2 score 4 (about 5% annual stroke risk) * HAS-BLED score 2 (moderate bleeding risk) * Given no prior hx of afib and occurrence during acute illness, could consider monitoring for recurrence with 30 day monitor but cardiology anticoagulating with possible cardioversion and repeat echo at later date (5) Hypertension, essential: Code(s): I10 - Essential (primary) hypertension Status: Acute Assessment and Plan: Dennis started with beta nereyda with low EF (6) Elevated troponin I level: Code(s): R79.89 - Other specified abnormal findings of blood chemistry Status: Acute Assessment and Plan: * Likely due to AFIB RVR, Sepsis with shock * Flat response * No ACS Subjective Date/time seen: 06/25/19 12:10 Interval history: Date of visit 06/24. 84-year-old female admitted 06/20 with acute cholangitis and common bile duct stone. /5 uneventful ERCP with extraction of 1 large common bowel duct stone. Patient has no complaints of abdominal pain but nausea this am. No shortness breath palpitations or chest pain Exam Narrative: Exam Narrative: Blood pressure 144/62 pulse is 86 irregular sat 95% RA HEENT: PERRL, sclera anicteric NECK: No JVD CHEST: Clear to auscultation. Normal effort. HEART: NL S1/S2, irregular , no murmur ABDOMEN: BS+, soft, nontender, no mass, no bruits EXTREMITIES: No cyanosis, edema, NEUROLOGIC: No focal deficits PSYCH: Alert. Oriented to person, place, and time. Objective Data Vital Signs Vital Signs: Vital Signs - 24 hr 06/24/19 14:00 06/24/19 22:00 06/25/19 04:47 Temperature 36.7 C 35.9 C L 35.8 C L Pulse Rate 84 81 97 Respiratory Rate 17 20 20 Blood Pressure 139/87 147/73 H 144/68 H Pulse Oximetry 100 99 95 Intake/Output Intake/Output: Intake & Output 06/22/19 06/23/19 06/24/19 06/25/19 23:59 23:59 23:59 23:59 Intake Total 2855 1390 1280 220 Output Total 4622 620 0669 1350 Balance 1455 990 -1620 -1130 Meds/Results Medications: Active Medications Generic Name Dose Route Start Last Admin Trade Name Freq PRN Reason Stop Dose Admin
--- NOTE | 2019-06-25 12:10 | PM.IMPN ---
Progress Note: A&P Assessment and Plan (1) Acute cholangitis: Code(s): K83.09 - Other cholangitis Status: Acute Assessment and Plan: Day 5 of 7 IV antibiotics, transition to ceftriaxone / for e coli in blood. 4/5 successful ERCP with extraction upon large common bile duct stone and resolution of symptoms diet advanced and tolerating well (2) Severe sepsis: Code(s): A41.9 - Sepsis, unspecified organism; R65.20 - Severe sepsis without septic shock Status: Acute Assessment and Plan: 4/5 off Levophed Resolved (3) COPD (chronic obstructive pulmonary disease): Code(s): J44.9 - Chronic obstructive pulmonary disease, unspecified Status: Acute Assessment and Plan: Uses PRN inhaler at home (4) Atrial fibrillation with RVR: Code(s): I48.91 - Unspecified atrial fibrillation Status: Acute Assessment and Plan: Denied prior hx of afib Improved with treatment of hypotension Echocardiogram with LVEF 35-40%, mild MR, mild , LA mildly enlarged , focal wall motion abnormalities LV and wall motion changes may be due to rate as she has no prior hx of chest pain 4/5 resumed metoprolol CHADS2-VASC2 score 4 (about 5% annual stroke risk) HAS-BLED score 2 (moderate bleeding risk) Given no prior hx of afib and occurrence during acute illness, could consider monitoring for recurrence with 30 day monitor but cardiology anticoagulating with possible cardioversion and repeat echo at later date (5) Hypertension, essential: Code(s): I10 - Essential (primary) hypertension Status: Acute Assessment and Plan: Dennis started with beta nereyda with low EF (6) Elevated troponin I level: Code(s): R79.89 - Other specified abnormal findings of blood chemistry Status: Acute Assessment and Plan: Likely due to AFIB RVR, Sepsis with shock Flat response No ACS Subjective Date/time seen: 06/25/19 12:10 Interval history: Date of visit 06/24. 84-year-old female admitted 06/20 with acute cholangitis and common bile duct stone. / uneventful ERCP with extraction of 1 large common bowel duct stone. Patient has no complaints of abdominal pain but nausea this am. No shortness breath palpitations or chest pain Exam Narrative: Exam Narrative: Blood pressure 144/62 pulse is 86 irregular sat 95% RA HEENT: PERRL, sclera anicteric NECK: No JVD CHEST: Clear to auscultation. Normal effort. HEART: NL S1/S2, irregular , no murmur ABDOMEN: BS+, soft, nontender, no mass, no bruits EXTREMITIES: No cyanosis, edema, NEUROLOGIC: No focal deficits PSYCH: Alert. Oriented to person, place, and time. Objective Data Vital Signs Vital Signs: Vital Signs - 24 hr 06/24/19 14:00 06/24/19 22:00 06/25/19 04:47 Temperature 36.7 C 35.9 C L 35.8 C L Pulse Rate 84 81 97 Respiratory Rate 17 20 20 Blood Pressure 139/87 147/73 H 144/68 H Pulse Oximetry 100 99 95 Intake/Output Intake/Output: Intake & Output 06/22/19 06/23/19 06/24/19 06/25/19 23:59 23:59 23:59 23:59 Intake Total 2855 1390 1280 220 Output Total 1193 516 1242 1350 Balance 1455 990 -1620 -1130 Meds/Results Medications: Active Medications Generic Name Dose Route Start Last Admin Trade Name Freq PRN Reason Stop Dose Admin Amitriptyline HCl 50 mg 06/21/19 21:00 06/24/19 20:27 Elavil PO 50 mg HS BILL Administration Dextrose 12.5 gm 06/21/19 10:37 Dextrose 50% Syringe IV PUSH PRN PRN Hypoglycemia Protocol Glucagon 1 mg 06/21/19 10:37 Glucagon For Inj IM PRN PRN Hypoglycemia Protocol Glucose 15 gm 06/21/19 10:37 Glutose 15 PO PRN PRN Hypoglycemia Protocol Dextrose 1,000 mls @ 100 mls/hr 06/21/19 10:37 Dextrose 5% 1,000 Ml IVPB PRN PRN Hypoglycemia Protocol Ceftriaxone Sodium/Dextrose 1 gm in 50 mls @ 100 mls/hr 06/24/19 18:00 06/24/19 18:00 Rocephin 1 Gm/D5w 50 Ml IV
[2019-06-25 14:00] VITALS: BP 138/66; PULSE 98; RESP 16; TEMP 36.3; O2SAT 99
[2019-06-25] MEDS: RIVAROXABAN 20 MG TABLET PO (16:28)
[2019-06-25 18:34] LABS: Glucose Point of Care 112 (65-105)
[2019-06-25 20:41] LABS: Glucose Point of Care 126 (65-105)
[2019-06-25] MEDS: AMITRIPTYLINE HCL 25 MG TABLET 50 MG PO (21:33)
[2019-06-25 22:00] VITALS: BP 141/73; PULSE 92; RESP 16; TEMP 36.6; O2SAT 97
[2019-06-26 05:34] VITALS: BP 124/76; PULSE 83; RESP 16; TEMP 35.8; O2SAT 95
[2019-06-26 08:35] VITALS: PULSE 72
[2019-06-26] MEDS: PANTOPRAZOLE 40 MG TABLET PO ×2 (08:35→21:55)
[2019-06-26] MEDS: METOPROLOL SUCCINATE EXT REL 100 MG TABCR PO (08:35)
[2019-06-26] MEDS: polyethylene glycoL 3350 17 GM POWD.PACK PO (08:35)
[2019-06-26] MEDS: SIMVASTATIN 20 MG TABLET PO (08:35)
[2019-06-26] MEDS: lisinopriL 10 MG TABLET PO (08:35)
--- NOTE | 2019-06-26 09:28 | PM.PNCARD ---
Progress Note: A&P Assessment and Plan (1) Atrial fibrillation with RVR: Code(s): I48.91 - Unspecified atrial fibrillation Status: Acute Assessment and Plan: heart rate is controlled at this point with metoprolol. Uncertain length of duration. Certainly could be related to her acute illness although she does not feel her palpitations and she was already on a large dose of metoprolol, it is certainly possible that she has had longer standing atrial fibrillation then simply during this hospitalization for cholangitis. Regardless, she also has a chads Vasc score of at least 5 and probably higher as she likely has underlying vascular disease also. continue Xarelto (2) Hypertension, essential: Code(s): I10 - Essential (primary) hypertension Status: Acute Assessment and Plan: continue present regimen (3) Type 2 diabetes mellitus with hyperglycemia: Code(s): E11.65 - Type 2 diabetes mellitus with hyperglycemia Status: Acute (4) Cardiomyopathy: Code(s): I42.9 - Cardiomyopathy, unspecified Status: Acute Assessment and Plan: Continue beta-nereyda, HELLEN-inhibitor She will need outpatient ischemic workup and repeat echocardiogram. Will add back simvastatin 20 mg p.o. daily as her liver function has nearly normalized Subjective Date/time seen: 06/26/19 09:28 Interval history: 84-year-old female admitted 06/20 with acute cholangitis and common bowel duct stone.Cardiology consult for atrial fibrillation 06/21 uneventful ERCP with extraction of 1 large common bowel duct stone. Patient has no complaints of abdominal pain take diet well. No shortness breath palpitations or chest pain Date of service 06/26/2019: She denies any chest pain or shortness of breath. Feels okay. No palpitation And wants to go home Review of Systems Review of Systems: All systems reviewed & are unremarkable except as noted in HPI and below Constitutional: Constitutional: Denies body ache(s) and Denies fatigue Eyes: Eyes: Denies photophobia ENT: Denies lip swelling and Denies nasal discharge Cardiovascular: Cardiovascular: Denies chest pain, Denies palpitations and Reports dyspnea Respiratory: Respiratory: Reports dyspnea Gastrointestinal: Gastrointestinal: Reports abdominal pain Genitourinary: Genitourinary: Denies hematuria Musculoskeletal: Musculoskeletal: Denies arthralgias Integumentary/Breasts: Skin/Breast: Denies dry skin and Denies rash Neurologic: Denies confusion Psychiatric: Psychiatric: Denies anxiety and Denies confusion Endocrine: Endocrine: Denies fatigue, Denies flushing and Denies palpitations Hematologic/Lymphatic: Hematologic/Lymphatic: Denies easy bleeding and Denies easy bruising Allergic/Immunologic: Allergic/Immunologic: Denies lip swelling Exam Narrative: Exam Narrative: Alert oriented Const: General: no acute distress; No confusion Orientation/consciousness: No confusion HENMT: General nose exam: Normal nares present Eyes: Sclera: normal sclerae Direct Ophthalmoscopy: No photophobia Neck: Neck: no JVD Chest: Other: no reproducible chest wall pain to palpation Resp: Auscultation: clear to auscultation bilaterally Cardio: Rhythm: abnormal rhythm irregularly irregular GI: Inspection: normal to inspection Skin: General skin exam: no erythema Neuro: General: No confusion Cognition (Neuro): normal cognition Speech: normal speech Extrem: General: normal to inspection Psych: Mental Status: mental status grossly normal Objective Data Vital Signs Vital Signs: Vital Signs - 24 hr 06/25/19 14:00 06/25/19 22:00 06/26/19 05:34 Temperature 36.3 C L 36.6 C 35.8 C L Pulse Rate 98 92 83 Respiratory Rate 16 16 16 Blood Pressure 138/66 141/73 H 124/76 Pulse Oximetry 99 97 95 06/26/19 08:35 Temperature Pulse Rate 72 Respiratory Rate Blood Pressure Pulse Oximetry Intake/Output Intake/Output: Intake & Outpu
[2019-06-26 09:41] LABS: Glucose Point of Care 111 (65-105)
[2019-06-26] MEDS: INSULIN ASPART (*BKC) 100 UNITS/ML SUB-Q (12:04)
[2019-06-26 12:07] LABS: Glucose Point of Care 236 (65-105)
[2019-06-26 14:00] VITALS: BP 147/83; PULSE 76; RESP 16; TEMP 36.7; O2SAT 97
--- NOTE | 2019-06-26 14:17 | PM.IMPN ---
Progress Note: A&P Assessment and Plan (1) Acute cholangitis: Code(s): K83.09 - Other cholangitis Status: Acute Assessment and Plan: Day 6 of 7 IV antibiotics, transition to ceftriaxone 06/22 for e coli in blood. 4/5 successful ERCP with extraction upon large common bile duct stone and resolution of symptoms diet advanced and tolerating well (2) Severe sepsis: Code(s): A41.9 - Sepsis, unspecified organism; R65.20 - Severe sepsis without septic shock Status: Acute Assessment and Plan: 4/ off Levophed Resolved (3) COPD (chronic obstructive pulmonary disease): Code(s): J44.9 - Chronic obstructive pulmonary disease, unspecified Status: Acute Assessment and Plan: Uses PRN inhaler at home (4) Atrial fibrillation with RVR: Code(s): I48.91 - Unspecified atrial fibrillation Status: Acute Assessment and Plan: Denied prior hx of afib Improved with treatment of hypotension Echocardiogram with LVEF 35-40%, mild MR, mild , LA mildly enlarged , focal wall motion abnormalities LV and wall motion changes may be due to rate as she has no prior hx of chest pain 4/5 resumed metoprolol CHADS2-VASC2 score 4 (about 5% annual stroke risk) HAS-BLED score 2 (moderate bleeding risk) Given no prior hx of afib and occurrence during acute illness, could consider monitoring for recurrence with 30 day monitor but cardiology anticoagulating with possible cardioversion and repeat echo at later date (5) Hypertension, essential: Code(s): I10 - Essential (primary) hypertension Status: Acute Assessment and Plan: Dennis started with beta nereyda with low EF and bp good, recheck renal status am lab (6) Elevated troponin I level: Code(s): R79.89 - Other specified abnormal findings of blood chemistry Status: Acute Assessment and Plan: Likely due to AFIB RVR, Sepsis with shock Flat response No ACS Subjective Date/time seen: 06/26/19 14:17 Interval history: Date of visit 06/25 . 84-year-old female admitted 06/20 with acute cholangitis and common bile duct stone. /5 uneventful ERCP with extraction of 1 large common bowel duct stone. Patient has no complaints of abdominal pain but nausea again this am but less. No shortness breath palpitations or chest pain Exam Narrative: Exam Narrative: Blood pressure 124/76 pulse is 82 irregular sat 92% RA HEENT: PERRL, sclera anicteric NECK: No JVD CHEST: Clear to auscultation. Normal effort. HEART: NL S1/S2, irregular , no murmur ABDOMEN: BS+, soft, nontender, no mass, no bruits EXTREMITIES: No cyanosis, edema, NEUROLOGIC: No focal deficits PSYCH: Alert. Oriented to person, place, and time. Objective Data Vital Signs Vital Signs: Vital Signs - 24 hr 06/25/19 22:00 06/26/19 05:34 06/26/19 08:35 Temperature 36.6 C 35.8 C L Pulse Rate 92 83 72 Respiratory Rate 16 16 Blood Pressure 141/73 H 124/76 Pulse Oximetry 97 95 Intake/Output Intake/Output: Intake & Output 06/23/19 06/24/19 06/25/19 06/26/19 23:59 23:59 23:59 23:59 Intake Total 1390 1280 1000 1535 Output Total 400 2900 2700 800 Balance 990 -1620 -1700 735 Meds/Results Medications: Active Medications Generic Name Dose Route Start Last Admin Trade Name Freq PRN Reason Stop Dose Admin Amitriptyline HCl 50 mg 06/21/19 21:00 06/25/19 21:33 Elavil PO 50 mg HS BILL Administration Dextrose 12.5 gm 06/21/19 10:37 Dextrose 50% Syringe IV PUSH PRN PRN Hypoglycemia Protocol Glucagon 1 mg 06/21/19 10:37 Glucagon For Inj IM PRN PRN Hypoglycemia Protocol Glucose 15 gm 06/21/19 10:37 Glutose 15 PO PRN PRN Hypoglycemia Protocol Dextrose 1,000 mls @ 100 mls/hr 06/21/19 10:37 Dextrose 5% 1,000 Ml IVPB PRN PRN Hypoglycemia Protocol Ceftriaxone Sodium/Dextrose 1 gm in 50 mls @ 100 mls/hr 06/24/19 18:00 06/25/19 1
[2019-06-26 17:18] LABS: Glucose Point of Care 103 (65-105)
[2019-06-26] MEDS: RIVAROXABAN 20 MG TABLET PO (17:33)
[2019-06-26 21:05] LABS: IFOB Positive Control Positive; Immunochemical Fecal Occult Bl Positive (N)
[2019-06-26] MEDS: AMITRIPTYLINE HCL 25 MG TABLET 50 MG PO (21:55)
[2019-06-26 22:00] VITALS: BP 137/66; PULSE 89; RESP 20; TEMP 36.1; O2SAT 98
[2019-06-26 22:31] LABS: Glucose Point of Care 107 (65-105)
[2019-06-27 05:41] LABS: Alanine Aminotransferase 46 U/L (4-35); Alkaline Phosphatase 254 U/L (38-126); Aspartate Amino Transferase 27 U/L (14-36); Bilirubin,Total 0.5 mg/dL (0.2-1.3); Blood Urea Nitrogen 17 mg/dL (7-17); Calcium 8.4 mg/dL (8.4-10.2); Carbon Dioxide 31 mmol/L (22-30); Chloride 103 mmol/L (98-107); Estimated CRCL calculation 39 ml/min; Estimated Glomerular Filt Rate 47; Glucose 119 mg/dL (65-105); Potassium 4.3 mmol/L (3.4-5.0); Sodium 138 mmol/L (137-145)
[2019-06-27 06:00] VITALS: BP 128/84; PULSE 94; RESP 20; TEMP 36.1; O2SAT 95
[2019-06-27 07:46] LABS: Glucose Point of Care 109 (65-105)
[2019-06-27 09:07] VITALS: PULSE 82
[2019-06-27] MEDS: lisinopriL 10 MG TABLET PO (09:07)
[2019-06-27] MEDS: METOPROLOL SUCCINATE EXT REL 100 MG TABCR PO (09:07)
[2019-06-27] MEDS: PANTOPRAZOLE 40 MG TABLET PO (09:08)
[2019-06-27] MEDS: polyethylene glycoL 3350 17 GM POWD.PACK PO (09:08)
[2019-06-27] MEDS: SIMVASTATIN 20 MG TABLET PO (09:08)
--- NOTE | 2019-06-27 10:02 | PCNWS ---
Weekly nutritional screen. Patient is tolerating current diet with adequate intake. No weight loss reported. No nutritional needs at this time.
--- NOTE | 2019-06-27 10:19 | PM.PNCARD ---
Progress Note: A&P Additional Plan Patient has atrial fibrillation, agree with 's assessment that this is likely to be a chronic arrhythmia. Heart rate is controlled patient is anticoagulated C difficile seems to be coming under control, patient hoping to be discharged Jhon Pradhan MD [facility] Subjective Date/time seen: Date of service: 06/27/19 10:19 Interval history: Follow-up visit for atrial fibrillation management. 84-year-old patient hospitalized primarily for C difficile colitis, fever and diarrhea is clinically improved and hoping to go home Exam Const: General: comfortable and no acute distress HENMT: Mouth: Yes moist mucous membranes Eyes: Sclera: sclerae normal Pupils: Equal, round and reactive pupils present Neck: Neck: supple and no JVD Thyroid: thyroid normal Resp: Effort & Inspection: normal respiratory effort Auscultation: clear to auscultation bilaterally Cardio: Rate: regular rate Rhythm: abnormal rhythm irregularly irregular GI: Auscultation: normal bowel sounds Skin: General skin exam: normal color Neuro: Cognition (Neuro): normal cognition Objective Data Vital Signs Vital Signs: Vital Signs - 24 hr 06/26/19 14:00 06/26/19 22:00 06/27/19 06:00 Temperature 36.7 C 36.1 C L 36.1 C L Pulse Rate 76 89 94 Respiratory Rate 16 20 20 Blood Pressure 147/83 H 137/66 128/84 Pulse Oximetry 97 98 95 06/27/19 09:07 Temperature Pulse Rate 82 Respiratory Rate Blood Pressure Pulse Oximetry Intake/Output Intake/Output: Intake & Output 06/24/19 06/25/19 06/26/19 06/27/19 23:59 23:59 23:59 23:59 Intake Total 1280 1000 2495 550 Output Total 2900 2700 1750 750 Balance -1620 -1700 745 -200 Meds/Results Medications: Active Medications Generic Name Dose Route Start Last Admin Trade Name Freq PRN Reason Stop Dose Admin Amitriptyline HCl 50 mg 06/21/19 21:00 06/26/19 21:55 Elavil PO 50 mg HS BILL Administration Dextrose 12.5 gm 06/21/19 10:37 Dextrose 50% Syringe IV PUSH PRN PRN Hypoglycemia Protocol Glucagon 1 mg 06/21/19 10:37 Glucagon For Inj IM PRN PRN Hypoglycemia Protocol Glucose 15 gm 06/21/19 10:37 Glutose 15 PO PRN PRN Hypoglycemia Protocol Dextrose 1,000 mls @ 100 mls/hr 06/21/19 10:37 Dextrose 5% 1,000 Ml IVPB PRN PRN Hypoglycemia Protocol Ceftriaxone Sodium/Dextrose 1 gm in 50 mls @ 100 mls/hr 06/24/19 18:00 06/26/19 18:04 Rocephin 1 Gm/D5w 50 Ml IVPB Infused QPM BILL Infusion Ceftriaxone Sodium/Dextrose 1 gm in 50 mls @ 100 mls/hr 06/27/19 11:55 Rocephin 1 Gm/D5w 50 Ml IVPB 06/27/19 12:24 ONCE ONE Insulin Aspart 2 - 5 units 06/21/19 12:00 06/27/19 07:43 Novolog SUB-Q Not Given [facility] Protocol Lisinopril 10 mg 06/25/19 10:08 06/27/19 09:07 Prinivil PO 10 mg QAM BILL Administration Metoprolol Succinate 100 mg 06/21/19 09:00 06/27/19 09:07 Toprol Xl PO 100 mg DAILY [facility] Administration Morphine Sulfate 4 mg 06/21/19 04:45 Morphine Sulfate Inj IV PUSH Q2H PRN Pain Rated 7-10 Ondansetron HCl 4 mg 06/21/19 04:45 Zofran Inj IV PUSH Q4H PRN Nausea Pantoprazole Sodium 40 mg 06/21/19 09:00 06/27/19 09:08 Protonix PO 40 mg Q12HR BILL Administration Polyethylene Glycol 17 gm 06/25/19 09:00 06/27/19 09:08 Miralax PO 17 gm QAM BILL Administration Rivaroxaban 20 mg 06/24/19 17:00 06/26/19 17:33 Xarelto PO 20 mg DAILY@1700 BILL Administration Simvastatin 20 mg 06/21/19 09:00 06/27/19 09:08 Zocor PO 20 mg DAILY BILL Administration Radiology Results: ITS Impressions Chest X-Ray 06/21/19 08:45 IMPRESSION: Right internal jugular central venous catheter in lower superior vena cava; no evidence of pneumothorax Cardiomegaly Abdomen/Pelvis CT 06/21/19 09:44 IMPRESSION: Probable distal common bile duct
[2019-06-27 11:43] LABS: Glucose Point of Care 110 (65-105)
[2019-06-27 13:59] VITALS: BP 131/96; PULSE 90; RESP 16; TEMP 35.9; O2SAT 95
--- NOTE | 2019-06-27 15:45 | PC.NURSE ---
No bleeding noted from central line site. Dressing remains dry and intact.
--- NOTE | 2019-06-27 17:31 | PM.DS ---
DS: Diagnosis Admitting Diagnosis Admitting Diagnosis: Other cholangitis Discharge Diagnosis (1) Acute cholangitis: Code(s): K83.09 - Other cholangitis Status: Acute Assessment and Plan: Day 7 of 7 IV antibiotics, transition to ceftriaxone 4/6 for e coli in blood. 4/5 successful ERCP with extraction upon large common bile duct stone and resolution of symptoms diet advanced and tolerating well (2) Severe sepsis: Code(s): A41.9 - Sepsis, unspecified organism; R65.20 - Severe sepsis without septic shock Status: Acute Assessment and Plan: 4/5 off Levophed Resolved all secondary to cholangitis (3) COPD (chronic obstructive pulmonary disease): Code(s): J44.9 - Chronic obstructive pulmonary disease, unspecified Status: Acute Assessment and Plan: Uses PRN inhaler at home (4) Atrial fibrillation with RVR: Code(s): I48.91 - Unspecified atrial fibrillation Status: Acute Assessment and Plan: Denied prior hx of afib Improved with treatment of hypotension Echocardiogram with LVEF 35-40%, mild MR, mild , LA mildly enlarged , focal wall motion abnormalities LV and wall motion changes may be due to rate as she has no prior hx of chest pain 4/5 resumed metoprolol CHADS2-VASC2 score 4 (about 5% annual stroke risk) HAS-BLED score 2 (moderate bleeding risk) Given no prior hx of afib and occurrence during acute illness, could consider monitoring for recurrence with 30 day monitor but cardiology anticoagulating with xarelto for possible cardioversion and repeat echo at later date (5) Hypertension, essential: Code(s): I10 - Essential (primary) hypertension Status: Acute Assessment and Plan: Dennis started with beta nereyda with low EF and bp good, and nifedipine held (6) Elevated troponin I level: Code(s): R79.89 - Other specified abnormal findings of blood chemistry Status: Acute Assessment and Plan: Likely due to AFIB RVR, Sepsis with shock Flat response No ACS (7) Anemia: Code(s): D64.9 - Anemia, unspecified Status: Acute Assessment and Plan: Mild anemia with hemoglobin stable at 10. Iron and TIBC both low compatible with chronic disease and B12 level was 296 so 1 dose of B12 1000 micro g was given IM. (8) Type 2 diabetes mellitus with hyperglycemia: Code(s): E11.65 - Type 2 diabetes mellitus with hyperglycemia Status: Acute Assessment and Plan: Sliding scale while here with sugars in the low 100s. Will resume her glimepiride 2 mg daily on discharge DS: Summary Hospital Course Hospital Course: 84-year-old white female admitted with cholangitis, sepsis, and hypotension. Found to have common duct stone which was extracted with ERCP on 06/21. Blood cultures positive for E coli and receive 7 days of IV antibiotic therapy. LFTs had almost totally restart returned to normal by discharge with AST of 47 Had AFib while here and on admission and the determine is how long she had had it because patient did not notice the arrhythmia With seen by Cardiology and echo revealed EF of 40% so DENNIS-inhibitor 10 mg lisinopril was added to her metoprolol succinate and the Xarelto 20 daily for anticoagulation. The plan will be follow-up echo and possibly cardioversion in the future if she remains and atrial fibrillation Time Spent with Patient Time attestation: Total time spent providing and/or coordinating discharge services:35 minutes Exam Narrative: Exam Narrative: Condition on discharge Blood pressure 130/90 pulse is 90 irregular sat 95% on room air Lungs clear CV irregular no murmurs Abdomen is soft nontender Extremities without edema Alert oriented ambulating with physical therapy DS: Data Data Completed and Pending Labs on day of discharge: Labs from last 24 hours 06/27/19 06/27/19 06/27/19 11:37 07:40 05:09 Sodium 138 Potassium 4.3 Chloride 103 Carbon
== END 2019-06-27 15:50 | disposition home or self-care (01) | DRG 872 ==
LOC: ANHED 04:53 → ANHICU 14:23 → ANH2MED 06-23 14:53 → ANHICU 06-30 11:09
PROVIDERS: Internal Medicine; Internal Medicine Gastroenterology; Admitting Provider Internal Medicine; Emergency Provider Emergency Medicine; Visit Provider Internal Medicine
PROC: 0FC98ZZ Extirpation of Matter from Common Bile Duct, Via Natural or Artificial Opening Endoscopic (ICD-10-PCS; CPT 43260; principal; 2019-06-22 07:30)
DX: A41.51 Sepsis due to Escherichia coli [E. coli] (principal); K80.30 Calculus of bile duct with cholangitis, unspecified, without obstruction; I42.9 Cardiomyopathy, unspecified; R65.20 Severe sepsis without septic shock; Z90.49 Acquired absence of other specified parts of digestive tract; J44.9 Chronic obstructive pulmonary disease, unspecified; I48.91 Unspecified atrial fibrillation; R68.0 Hypothermia, not associated with low environmental temperature; Z87.891 Personal history of nicotine dependence; I10 Essential (primary) hypertension; E78.5 Hyperlipidemia, unspecified; E11.65 Type 2 diabetes mellitus with hyperglycemia; D63.8 Anemia in other chronic diseases classified elsewhere
CPT/HCPCS: 36415; 36556; 36600; 74177; 74329; 80053; 81001; 82274; 82375; 82607; 82746; 82805; 83050; 83540; 83550; 83605; 83690; 83735; 84100; 84439; 84443; 84480; 84484; 85025; 85027; 85046; 85610; 85730; 86140; 87040; 87077; 87186; 93005; 96361; 96365; 96366; 96367; 96375; 97110; 97116; 97161; 97165; 97535; 99285; A9270; C1751; C8929; J0131; J0330; J0696; J1815; J2370; J2405; J2543; J2704; J3370; J3420; J7030; J7040; J7120; Q9957; Q9967

== ENCOUNTER 2019-07-07 13:47 | Outpatient (CLI) | payer MEDICARE, OTHER, SELFPAY ==
[2019-07-07 14:28] LABS: Hemoglobin 11.3 g/dL (12.0-15.0); Mean Corpuscular HGB Conc 31.4 g/dl (32-36); Mean Corpuscular Hemoglobin 29.7 pg (26-34); Mean Corpuscular Volume 94.7 fl (80-100); Mean Platelet Volume 11.3 fl (7.4-10.4); Platelet Count Result 374 k/mm3 (150-375); Red Cell Distribution Width 14.5 % (11.5-14.5); White Blood Count 5.3 K/mm3 (4.5-10.0)
[2019-07-07 14:33] LABS: Blood Urea Nitrogen 26 mg/dL (7-17); Calcium 8.6 mg/dL (8.4-10.2); Carbon Dioxide 28 mmol/L (22-30); Chloride 102 mmol/L (98-107); Estimated Glomerular Filt Rate 43; Glucose 159 mg/dL (65-105); Potassium 4.5 mmol/L (3.4-5.0); Sodium 135 mmol/L (137-145)
== END 2019-07-07 13:48 | disposition home or self-care (01) ==
PROVIDERS: PCP Internal Medicine Cardiovascular Disease; Referring Provider Internal Medicine Cardiovascular Disease; Visit Provider Nurse Practitioner Adult Health
DX: I10 Essential (primary) hypertension (principal); I42.9 Cardiomyopathy, unspecified; I48.91 Unspecified atrial fibrillation; Z79.01 Long term (current) use of anticoagulants
CPT/HCPCS: 36415; 80048; 85027